=== PATIENT | female | born 1935 | race Caucasian/White ===

== ENCOUNTER 2018-04-03 18:20 | Inpatient (IN) ==
[2018-04-03] MEDS ORDERED: Ondansetron 4 MG/2 ML VIAL IVP ONE (18:28)
--- NOTE | 2018-04-03 18:39 | Emergency Department Note ---
Disposition Clinical Impression: Nausea vomiting and diarrhea Disposition: Still a Patient Condition: Good Time of Disposition: 18:46 General Adult HPI - General Chief complaint: ED Nausea/Vomiting/Diarrhea Stated complaint: nausea, vomiting Time Seen by Provider: 04/03/18 18:27 Source: patient Mode of arrival: EMS Limitations: no limitations Nursing Notes Reviewed: Yes Vital Signs Reviewed: Yes - History of Present Illness HPI Narrative: Patient presents from [facility] for acute onset of nausea vomiting or diarrhea. Patient ate food last night and since then his had persistent symptoms. Patient denies any falls trauma or injury. She has been out to our emergency room twice since the beginning of the month for other etiology. Patient is currently denying chest pain, shortness of breath, nausea, vomiting. Denies any fevers or chills. The diarrhea is her main concern. Onset (ago): day(s) Location: abdomen Radiation: non-radiation Pain Severity: moderate Pain Scale: 0 Quality: aching Consistency: intermittent Improves with: nothing Worsens with: nothing Associated symptoms: Reports: loss of appetite, nausea/vomiting Treatments Prior to Arrival: none - Related Data Home Medications Medication Instructions Recorded Confirmed Aspirin [Adult Low Dose Aspirin EC] 81 mg PO DAILY 05/19/15 03/21/18 Ropinirole HCl [Requip Xl] 2 mg PO HS 05/19/15 03/21/18 Vitamin D3/Folic Acid [Ortho D 1,000 cap PO DAILY 05/19/15 03/21/18 3,775 Unit-1 mg Cap] Lisinopril [Zestril] 10 mg PO QPM 02/27/16 03/21/18 Furosemide [Lasix] 40 mg PO DAILY 11/05/17 03/21/18 Levothyroxine [Levothyroxine 137 mcg PO DAILY 02/05/18 03/21/18 Sodium] Previous Rx's Medication Instructions Recorded Sennosides [Senna] 2 tab PO HS #60 tablet 01/06/16 Oxycodone HCl [Oxaydo] 5 mg PO Q2H PRN #90 tablet.orl 10/19/16 Alendronate Sodium [Fosamax] 70 mg PO QWEEK #12 tablet 04/09/17 Potassium Chloride 20 meq PO BID #60 tab.er.prt 10/21/17 Capecitabine [Xeloda] 3 tab PO BID #84 tablet 02/05/18 Ondansetron HCl [Zofran] 4 mg PO Q4H PRN #30 tablet 02/05/18 Prochlorperazine Maleate 10 mg PO Q6H PRN #30 tablet 02/05/18 [Compazine] Lidocaine/Prilocaine [Emla] 1 appl TP AD #30 gm 02/07/18 Loperamide HCl [Imodium A-D] 2 mg PO Q2HR PRN #30 capsule 02/14/18 Walker [WALKER] 1 each .ROUTE AD #1 each 02/17/18 Gabapentin [Neurontin] 300 mg PO BID 30 Days #60 capsule 02/21/18 Azithromycin [Azithromycin 6-Tab 250 mg PO PER PKG DI #6 tab 03/21/18 Pack] Metoprolol [Lopressor] 12.5 mg PO BID #30 tablet 04/02/18 Allergies Allergy/AdvReac Type Severity Reaction Status Date / Time adhesive Allergy Unknown Blister Verified 03/21/18 13:39 Penicillins [PCN] Allergy Unknown Hives Verified 03/21/18 13:39 Sulfa (Sulfonamide Allergy Unknown Hives Verified 03/21/18 13:39 Antibiotics) All systems ED: reviewed and negative except as stated. Review of Systems: As Per HPI Constitutional: Denies: fever, weakness Cardiovascular: Denies: chest pain, palpitations, dyspnea on exertion, orthopnea Respiratory: Denies: cough, dyspnea, wheezes, hemoptysis Gastrointestinal: Reports: abdominal pain, nausea, vomiting, diarrhea. Denies: constipation, hematemesis, hematochezia Genitourinary: Denies: urgency, dysuria, frequency Musculoskeletal: Denies: back pain, neck pain Integumentary: Denies: rash Neurological: Denies: headache Psychiatric: Denies: anxiety, depression Endocrine: Denies: fatigue Past Medical History - Past Medical History Attestation: Yes The following information was validated with the patient. Source: patient Medical history: Reports: arthritis, cancer, hypertension, malignancy, osteoporosis, thyroid disease, syncope, venous stasis, other Surgical history: Reports: angioplasty/stent, breast surgery, , c olectomy, pacemaker/AICD, other Psychiatric history: Reports: no psych history - Social History Smoking Status: Never smoker Smokeless Tobacco Status: No Alcohol use: Reports: none Drug use: Reports: none Physical Exam - General Limitations: no limitations General appearance: alert, in no apparent distress - Head Head exam: atraumatic, normocephalic, normal inspection - ENT ENT exam: normal exam, normal oropharynx, mucous membranes moist - Neck Neck exam: Present: normal inspection, full ROM, trachea midline. Absent: tenderness, lymphadenopathy - Chest Chest inspection: Present: normal inspection, symmetric chest wall rise. Absent: tenderness - Respiratory Respiratory exam: Present: normal lung sounds bilaterally. Absent: respiratory distress, wheezes, accessory muscle use - Cardiovascular Cardiovascular exam: Present: regular rate, normal rhythm, normal heart sounds - Abdominal Exam Abdominal exam: Present: soft, Non-Tender, normal bowel sounds. Absent: tenderness, distention, guarding, rebound, rigidity, Patrick's sign, Rovsing's sign, tenderness at McBurney's Point - Extremities Exam Extremities exam: Present: normal inspection, full ROM, normal capillary refill. Absent: tenderness - Back Exam Back exam: Present: normal inspection, full ROM. Absent: tenderness, CVA tenderness (R), CVA tenderness (L) - Neurological Exam Neurological exam: Present: alert, oriented X3, CN II-XII intact, normal gait - Skin Skin exam: Present: warm, dry, intact, normal color Course Course Narrative: Patient seen and examined at the time of arrival. See history of present illness. 82-year-old female presents from long-term facility for evaluation of persistent nausea vomiting and diarrhea. Symptom onset was last night. She has been evaluated twice over the last 2 weeks for other issues. She has never had nausea vomiting or diarrhea. Patient did eat food provided from a local druze last night and then since then his had pain. Patient denies any chest pain, shortness of breath, nausea, fevers, chills. Her main complaint is abdominal discomfort lower abdominal cramping and diarrhea. Vital signs otherwise stable on presentation. Patient is alert she is oriented she speaks in full sentences. Her lungs are clear her heart is regular. Abdomen is soft mild discomfort in the lower abdomen but no point tenderness guarding rigidity or peritoneal symptoms noted at this time. Patient does not have any appreciable pitting edema. No acute neurologic deficits. Patient will have labs including a CBC, chemistry, troponin, BNP ordered at this time along with urinalysis. EKG chest x-ray and CT the abdomen will be completed as well. Patient does not have any acute findings are concerning for influenza but the patient is complaining of symptoms that would be consistent with food poisoning. Disposition pending the full workup and treatment course. Patient will be signed out to the nighttime physician Dr. Blum. Vital Signs Temperature 98.5 F 04/03/18 18:21 Pulse Rate 89 04/03/18 18:21 Respiratory Rate 18 04/03/18 18:21 Blood Pressure 101/70 04/03/18 18:21 O2 Sat by Pulse Oximetry 99 04/03/18 18:21 Temperature 98.5 F 04/03/18 18:21 Pulse Rate 89 04/03/18 18:21 Respiratory Rate 18 04/03/18 18:21 Blood Pressure 101/70 04/03/18 18:21 O2 Sat by Pulse Oximetry 99 04/03/18 18:21 Oxygen Delivery Oxygen Delivery Room Air Medical Decision Making - MDM Narrative Medical decision making narrative: Abdominal cramping, nausea vomiting and diarrhea
[2018-04-03] MEDS ORDERED: 0.9 % Sodium Chloride 1,000 ML IVC SCH (19:00)
[2018-04-03] MEDS ORDERED: Isovue-370 500 ML INFUS..BTL IV ONE (19:19)
--- NOTE | 2018-04-03 19:24 | Emergency Department Note ---
Disposition Clinical Impression: Nausea vomiting and diarrhea, Dehydration Disposition: Admitted As Inpatient Condition: Good Referrals: Moose Villalta MD [Primary Care Provider] - Forms: ED Satisfaction Letter Time of Disposition: 22:51 General Adult HPI - General Chief complaint: ED Nausea/Vomiting/Diarrhea Stated complaint: nausea, vomiting Time Seen by Provider: 04/03/18 18:27 Source: patient Mode of arrival: EMS Limitations: no limitations Nursing Notes Reviewed: Yes Vital Signs Reviewed: Yes - History of Present Illness HPI Narrative: Please see Dr Hartman note for initial HPI. Pt did now endorse SOB which she did not complain to him. She states that currently at rest she is not SOB, however she reports when she gets up and walk she get SOB. She denies chest pain associated with this. Location: abdomen Pain Scale: 0 Quality: aching Improves with: nothing Worsens with: nothing Associated symptoms: Reports: loss of appetite, nausea/vomiting Treatments Prior to Arrival: none - Related Data Home Medications Medication Instructions Recorded Confirmed Aspirin [Adult Low Dose Aspirin EC] 81 mg PO DAILY 05/19/15 03/21/18 Ropinirole HCl [Requip Xl] 2 mg PO HS 05/19/15 03/21/18 Vitamin D3/Folic Acid [Ortho D 1,000 cap PO DAILY 05/19/15 03/21/18 3,775 Unit-1 mg Cap] Lisinopril [Zestril] 10 mg PO QPM 02/27/16 03/21/18 Furosemide [Lasix] 40 mg PO DAILY 11/05/17 03/21/18 Levothyroxine [Levothyroxine 137 mcg PO DAILY 02/05/18 03/21/18 Sodium] Previous Rx's Medication Instructions Recorded Sennosides [Senna] 2 tab PO HS #60 tablet 01/06/16 Oxycodone HCl [Oxaydo] 5 mg PO Q2H PRN #90 tablet.orl 10/19/16 Alendronate Sodium [Fosamax] 70 mg PO QWEEK #12 tablet 04/09/17 Potassium Chloride 20 meq PO BID #60 tab.er.prt 10/21/17 Capecitabine [Xeloda] 3 tab PO BID #84 tablet 02/05/18 Ondansetron HCl [Zofran] 4 mg PO Q4H PRN #30 tablet 02/05/18 Prochlorperazine Maleate 10 mg PO Q6H PRN #30 tablet 02/05/18 [Compazine] Lidocaine/Prilocaine [Emla] 1 appl TP AD #30 gm 02/07/18 Loperamide HCl [Imodium A-D] 2 mg PO Q2HR PRN #30 capsule 02/14/18 Walker [WALKER] 1 each .ROUTE AD #1 each 02/17/18 Gabapentin [Neurontin] 300 mg PO BID 30 Days #60 capsule 02/21/18 Azithromycin [Azithromycin 6-Tab 250 mg PO PER PKG DI #6 tab 03/21/18 Pack] Metoprolol [Lopressor] 12.5 mg PO BID #30 tablet 04/02/18 Allergies Allergy/AdvReac Type Severity Reaction Status Date / Time adhesive Allergy Unknown Blister Verified 03/21/18 13:39 Penicillins [PCN] Allergy Unknown Hives Verified 03/21/18 13:39 Sulfa (Sulfonamide Allergy Unknown Hives Verified 03/21/18 13:39 Antibiotics) All systems ED: reviewed and negative except as stated. Review of Systems: As Per HPI Constitutional: Denies: fever, weakness Cardiovascular: Denies: chest pain, palpitations, dyspnea on exertion, orthopnea Respiratory: Denies: cough, dyspnea, wheezes, hemoptysis Gastrointestinal: Reports: abdominal pain, nausea, vomiting, diarrhea (multiple episodes today). Denies: constipation, hematemesis, hematochezia Genitourinary: Denies: urgency, dysuria, frequency Musculoskeletal: Denies: back pain, neck pain Integumentary: Denies: rash Neurological: Denies: headache Psychiatric: Denies: anxiety, depression Endocrine: Reports: fatigue Past Medical History - Past Medical History Attestation: Yes The following information was validated with the patient. Source: patient Medical history: Reports: arthritis, cancer, hypertension, malignancy, osteoporosis, thyroid disease, syncope, venous stasis, other Surgical history: Reports: angioplasty/stent, breast surgery, , c olectomy, pacemaker/AICD, other Psychiatric history: Reports: no psych history - Social History Smoking Status: Never smoker Smokeless Tobacco Status: No Alcohol use: Reports: none Drug use: Reports: none Physical Exam - General Limitations: no limitations General appearance: alert, in no apparent distress - Head Head exam: atraumatic, normocephalic, normal inspection - Eye Eye exam: Present: normal appearance, PERRL, EOMI - ENT ENT exam: normal exam, normal oropharynx, mucous membranes dry - Neck Neck exam: Present: normal inspection, full ROM, trachea midline - Chest Chest inspection: Present: normal inspection, symmetric chest wall rise - Respiratory Respiratory exam: Present: normal lung sounds bilaterally (diminished in lower lobes). Absent: respiratory distress, accessory muscle use - Cardiovascular Cardiovascular exam: Present: regular rate, normal rhythm, normal heart sounds - Abdominal Exam Abdominal exam: Present: soft, tenderness (to RUQ and RLQ). Absent: distention, guarding, rebound, rigidity, organomegaly, mass - Extremities Exam Extremities exam: Present: normal inspection, full ROM, normal capillary refill. Absent: tenderness, pedal edema, calf tenderness - Neurological Exam Neurological exam: Present: alert, oriented X3 - Psychiatric Psychiatric exam: Present: normal affect, normal mood - Skin Skin exam: Present: warm, dry, intact, normal color. Absent: cyanosis, diaphoresis Course Course Narrative: On exam at my arrival Pt now has tenderness to palpation of the right upper and right lower quadrants. There are no palpable masses or distention. She has no peritoneal signs She does report a decrease in her abdoinal pain occasionally after a bowel movement which she states is watery. Non bloody no melena. She denies any urinary symptoms. We will continue with the plan that DR Mccoy has, with the addition of IV contrast to the CT if the Pt GFR is stable, and we added a lipase level. The Pt is agreeable with this. - Reevaluation(s) Reevaluation #1: Patient reassessed. Patient CT of her abdomen did show ascites throughout. She appears clinically dehydrated and has worsening of her kidney function. Patient does have a history of CHF. We have provided her with fluids will she is here. She is not able to take by mouth intake she still states she feels nauseated. She has had multiple episodes of diarrhea earlier today with a recent antibiotic use of azithromycin. We are still awaiting liver enzymes. We will admit patient to hospital. Time: 22:40 Reevaluation #2: Patient's liver enzymes are normal. We will proceed with admission to the hospital. Time: 22:49 - Consultations Consultation #1: Pt accepted Pt in stable condition. Time: 23:00 Vital Signs Temperature 98.5 F 04/03/18 18:21 Pulse Rate 89 04/03/18 18:21 Respiratory Rate 18 04/03/18 18:21 Blood Pressure 101/70 04/03/18 18:21 O2 Sat by Pulse Oximetry 99 04/03/18 18:21 Temperature 98.5 F 04/03/18 18:21 Pulse Rate 82 04/03/18 19:51 Respiratory Rate 20 04/03/18 19:51 Blood Pressure 108/66 04/03/18 19:51 O2 Sat by Pulse Oximetry 97 04/03/18 19:51 Oxygen Delivery Oxygen Delivery Room Air Medical Decision Making - Medical Records Medical records reviewed: Yes I reviewed the patient's medical records. - Lab Data Lab results reviewed: Yes I reviewed the patient's lab results. Result diagrams: 04/03/18 21:18 04/03/18 20:17 Lab Results 04/03/18 04/03/18 04/03/18 Range/Units 20:17 20:17 20:17 WBC (4.3-11.1) K/mcL RBC (3.82-4.97) M/mcL Hgb (11.5-15.4) g/dL Hct (35.3-44.9) % MCV (83.0-100.0) fL MCH (28.0-33.3) pg MCHC (31.6-35.5) g/dL RDW (11.5-14.5) % Plt Count (140-400) K/mcL MPV (9.4-12.4) fL Immature Gran % (0-4) % Seg Neutrophils % % Lymphocytes % % Monocytes % % Eosinophils % % Basophils % % Neutrophils # (1.6-8.9) K/mcL Lymphocytes # (0.6-4.6) K/mcL Monocytes # (0.0-1.3) K/mcL Eosinophils # (0.0-0.6) K/mcL Basophils # (0.0-0.2) K/mcL Sodium 135 L (136-145) mEq/L Potassium 4.8 (3.5-5.1) mEq/L Chloride 108 H (98-107) mEq/L Carbon Dioxide 19 L (23-29) mEq/L BUN 26 H (8-23) mg/dL Creatinine 1.34 H (0.60-1.20) mg/dL Est GFR ( Amer) 46 L (> 60) Est GFR (Non-Af Amer) 38 L (> 60) BUN/Creatinine Ratio 19 (6-26) Glucose 126 H (70-105) mg/dL Calculated Osmolality 286 (280-300) Lactic Acid (0.5-2.2) mmol/L Calcium 8.5 L (8.6-10.3) mg/dL Total Bilirubin 1.0 (0.3-1.0) mg/dL Direct Bilirubin 0.1 (0.0-0.2) mg/dL Indirect Bilirubin 0.9 (0.0-1.2) mg/dL AST 22 (13-39) Units/L ALT 8 (7-52) Units/L Alkaline Phosphatase 60 (34-104) Units/L Troponin I < 0.03 (< 0.04) ng/mL B-Natriuretic Peptide 50 (Less than 100) pg/mL Serum Total Protein 5.6 L (6.4-8.9) g/dL Albumin 3.1 L (3.5-5.7) g/dL Globulin 2.5 (2.4-3.5) g/dL Albumin/Globulin Ratio 1.2 (1.1-2.2) Lipase 13 (11-82) Units/L Specimen Rejected Clotted 04/03/18 04/03/18 Range/Units 21:18 22:19 WBC 8.6 (4.3-11.1) K/mcL RBC 3.62 L (3.82-4.97) M/mcL Hgb 12.2 (11.5-15.4) g/dL Hct 37.0 (35.3-44.9) % MCV 102.2 H (83.0-100.0) fL MCH 33.7 H (28.0-33.3) pg MCHC 33.0 (31.6-35.5) g/dL RDW 19.4 H (11.5-14.5) % Plt Count 154 (140-400) K/mcL MPV 10.0 (9.4-12.4) fL Immature Gran % 0.5 (0-4) % Seg Neutrophils % 74.5 % Lymphocytes % 16.9 % Monocytes % 7.2 % Eosinophils % 0.7 % Basophils % 0.2 % Neutrophils # 6.4 (1.6-8.9) K/mcL Lymphocytes # 1.5 (0.6-4.6) K/mcL Monocytes # 0.6 (0.0-1.3) K/mcL Eosinophils # 0.1 (0.0-0.6) K/mcL Basophils # 0.0 (0.0-0.2) K/mcL Sodium (136-145) mEq/L Potassium (3.5-5.1) mEq/L Chloride (98-107) mEq/L Carbon Dioxide (23-29) mEq/L BUN (8-23) mg/dL Creatinine (0.60-1.20) mg/dL Est GFR ( Amer) (> 60) Est GFR (Non-Af Amer) (> 60) BUN/Creatinine Ratio (6-26) Glucose (70-105) mg/dL Calculated Osmolality (280-300) Lactic Acid 1.0 (0.5-2.2) mmol/L Calcium (8.6-10.3) mg/dL Total Bilirubin (0.3-1.0) mg/dL Direct Bilirubin (0.0-0.2) mg/dL Indirect Bilirubin (0.0-1.2) mg/dL AST (13-39) Units/L ALT (7-52) Units/L Alkaline Phosphatase (34-104) Units/L Troponin I (< 0.04) ng/mL B-Natriuretic Peptide (Less than 100) pg/mL Serum Total Protein (6.4-8.9) g/dL Albumin (3.5-5.7) g/dL Globulin (2.4-3.5) g/dL Albumin/Globulin Ratio (1.1-2.2) Lipase (11-82) Units/L Specimen Rejected - Radiology Data Radiology results reviewed: Yes I reviewed the patient's radiology results. Chest X-Ray 04/03/18 18:34 IMPRESSION: No acute findings. D/ / Sadiq Rothman MD / Sadiq Rothman MD Interpreting Provider: Sadiq Rothman MD Chest X-Ray 04/03/18 18:34 IMPRESSION: No acute findings. D/ / Sadiq Rothman MD / Sadiq Rothman MD Interpreting Provider: Sadiq Rothman MD Abdomen/Pelvis CT 04/03/18 21:11 IMPRESSION: 1. Small to moderate ascites. 2. Stable upper abdominal nodules along the liver resection margin and anterior to the pancreas. D/ / Martin Alonzo MD / Martin Alonzo MD Interpreting Provider: Martin Alonzo MD - EKG Data EKG #1 EKG attestation: Yes I reviewed and interpreted this EKG. EKG results narrative: Normal sinus rhythm at a rate 86. [place] interval is 202. QRS duration is 92. QT is 387. QTC is 463. No signs of acute ischemia. No signs of WPW or Brugada syndrome. Poor R-wave progression.
[2018-04-03] MEDS ORDERED: *HR* FentaNYL (PF) 100 MCG/2 ML VIAL IVP STA (19:42)
[2018-04-03] MEDS ORDERED: 0.9 % Sodium Chloride 250 ML IVC ONE (20:41)
[2018-04-03 20:54] LABS: BUN/Creatinine Ratio 19 (6-26); Blood Urea Nitrogen 26 mg/dL (8-23); Calcium 8.5 mg/dL (8.6-10.3); Carbon Dioxide 19 mEq/L (23-29); Chloride 108 mEq/L (98-107); Glucose 126 mg/dL (70-105); Lipase 13 Units/L (11-82); Osmolality,Calculated 286 (280-300); Potassium 4.8 mEq/L (3.5-5.1); Sodium 135 mEq/L (136-145); Troponin I < 0.03 ng/mL (< 0.04); eGFR For Non-African Americans 38 (> 60)
--- NOTE | 2018-04-03 21:18 | Emergency Department Note ---
Disposition Clinical Impression: Nausea vomiting and diarrhea, Dehydration Disposition: Still a Patient Condition: Good General Adult HPI - General Chief complaint: ED Nausea/Vomiting/Diarrhea Stated complaint: nausea, vomiting Time Seen by Provider: 04/03/18 18:27 Source: patient Mode of arrival: EMS Limitations: no limitations - History of Present Illness Location: abdomen Pain Scale: 0 Quality: aching Improves with: nothing Worsens with: nothing Associated symptoms: Reports: loss of appetite, nausea/vomiting Treatments Prior to Arrival: none - Related Data Home Medications Medication Instructions Recorded Confirmed Aspirin [Adult Low Dose Aspirin EC] 81 mg PO DAILY 05/19/15 03/21/18 Ropinirole HCl [Requip Xl] 2 mg PO HS 05/19/15 03/21/18 Vitamin D3/Folic Acid [Ortho D 1,000 cap PO DAILY 05/19/15 03/21/18 3,775 Unit-1 mg Cap] Lisinopril [Zestril] 10 mg PO QPM 02/27/16 03/21/18 Furosemide [Lasix] 40 mg PO DAILY 11/05/17 03/21/18 Levothyroxine [Levothyroxine 137 mcg PO DAILY 02/05/18 03/21/18 Sodium] Previous Rx's Medication Instructions Recorded Sennosides [Senna] 2 tab PO HS #60 tablet 01/06/16 Oxycodone HCl [Oxaydo] 5 mg PO Q2H PRN #90 tablet.orl 10/19/16 Alendronate Sodium [Fosamax] 70 mg PO QWEEK #12 tablet 04/09/17 Potassium Chloride 20 meq PO BID #60 tab.er.prt 10/21/17 Capecitabine [Xeloda] 3 tab PO BID #84 tablet 02/05/18 Ondansetron HCl [Zofran] 4 mg PO Q4H PRN #30 tablet 02/05/18 Prochlorperazine Maleate 10 mg PO Q6H PRN #30 tablet 02/05/18 [Compazine] Lidocaine/Prilocaine [Emla] 1 appl TP AD #30 gm 02/07/18 Loperamide HCl [Imodium A-D] 2 mg PO Q2HR PRN #30 capsule 02/14/18 Walker [WALKER] 1 each .ROUTE AD #1 each 02/17/18 Gabapentin [Neurontin] 300 mg PO BID 30 Days #60 capsule 02/21/18 Azithromycin [Azithromycin 6-Tab 250 mg PO PER PKG DI #6 tab 03/21/18 Pack] Metoprolol [Lopressor] 12.5 mg PO BID #30 tablet 04/02/18 Allergies Allergy/AdvReac Type Severity Reaction Status Date / Time adhesive Allergy Unknown Blister Verified 03/21/18 13:39 Penicillins [PCN] Allergy Unknown Hives Verified 03/21/18 13:39 Sulfa (Sulfonamide Allergy Unknown Hives Verified 03/21/18 13:39 Antibiotics) Constitutional: Denies: fever, weakness Cardiovascular: Denies: chest pain, palpitations, dyspnea on exertion, orthopnea Respiratory: Denies: cough, dyspnea, wheezes, hemoptysis Gastrointestinal: Reports: abdominal pain, nausea, vomiting, diarrhea. Denies: constipation, hematemesis, hematochezia Genitourinary: Denies: urgency, dysuria, frequency Musculoskeletal: Denies: back pain, neck pain Integumentary: Denies: rash Neurological: Denies: headache Psychiatric: Denies: anxiety, depression Endocrine: Reports: fatigue Past Medical History - Past Medical History Medical history: Reports: arthritis, cancer, hypertension, malignancy, osteoporosis, thyroid disease, syncope, venous stasis, other Surgical history: Reports: angioplasty/stent, breast surgery, , colec elinor, pacemaker/AICD, other Psychiatric history: Reports: no psych history - Social History Smoking Status: Never smoker Smokeless Tobacco Status: No Alcohol use: Reports: none Drug use: Reports: none Physical Exam - General Limitations: no limitations General appearance: alert, in no apparent distress Course Vital Signs Temperature 98.5 F 04/03/18 18:21 Pulse Rate 89 04/03/18 18:21 Respiratory Rate 18 04/03/18 18:21 Blood Pressure 101/70 04/03/18 18:21 O2 Sat by Pulse Oximetry 99 04/03/18 18:21 Temperature 98.5 F 04/03/18 18:21 Pulse Rate 78 04/03/18 23:20 Respiratory Rate 17 04/03/18 23:20 Blood Pressure 103/64 04/03/18 23:20 O2 Sat by Pulse Oximetry 97 04/03/18 23:20 Oxygen Delivery Oxygen Delivery Room Air Medical Decision Making - Lab Data Result diagrams: 04/03/18 21:18 04/03/18 20:17 Lab Results 04/03/18 04/03/18 04/03/18 Range/Units 20:17 20:17 20:17 WBC (4.3-11.1) K/mcL RBC (3.82-4.97) M/mcL Hgb (11.5-15.4) g/dL Hct (35.3-44.9) % MCV (83.0-100.0) fL MCH (28.0-33.3) pg MCHC (31.6-35.5) g/dL RDW (11.5-14.5) % Plt Count (140-400) K/mcL MPV (9.4-12.4) fL Immature Gran % (0-4) % Seg Neutrophils % % Lymphocytes % % Monocytes % % Eosinophils % % Basophils % % Neutrophils # (1.6-8.9) K/mcL Lymphocytes # (0.6-4.6) K/mcL Monocytes # (0.0-1.3) K/mcL Eosinophils # (0.0-0.6) K/mcL Basophils # (0.0-0.2) K/mcL Sodium 135 L (136-145) mEq/L Potassium 4.8 (3.5-5.1) mEq/L Chloride 108 H (98-107) mEq/L Carbon Dioxide 19 L (23-29) mEq/L BUN 26 H (8-23) mg/dL Creatinine 1.34 H (0.60-1.20) mg/dL Est GFR ( Amer) 46 L (> 60) Est GFR (Non-Af Amer) 38 L (> 60) BUN/Creatinine Ratio 19 (6-26) Glucose 126 H (70-105) mg/dL Calculated Osmolality 286 (280-300) Lactic Acid (0.5-2.2) mmol/L Calcium 8.5 L (8.6-10.3) mg/dL Total Bilirubin 1.0 (0.3-1.0) mg/dL Direct Bilirubin 0.1 (0.0-0.2) mg/dL Indirect Bilirubin 0.9 (0.0-1.2) mg/dL AST 22 (13-39) Units/L ALT 8 (7-52) Units/L Alkaline Phosphatase 60 (34-104) Units/L Troponin I < 0.03 (< 0.04) ng/mL B-Natriuretic Peptide 50 (Less than 100) pg/mL Serum Total Protein 5.6 L (6.4-8.9) g/dL Albumin 3.1 L (3.5-5.7) g/dL Globulin 2.5 (2.4-3.5) g/dL Albumin/Globulin Ratio 1.2 (1.1-2.2) Lipase 13 (11-82) Units/L Specimen Rejected Clotted 04/03/18 04/03/18 Range/Units 21:18 22:19 WBC 8.6 (4.3-11.1) K/mcL RBC 3.62 L (3.82-4.97) M/mcL Hgb 12.2 (11.5-15.4) g/dL Hct 37.0 (35.3-44.9) % MCV 102.2 H (83.0-100.0) fL MCH 33.7 H (28.0-33.3) pg MCHC 33.0 (31.6-35.5) g/dL RDW 19.4 H (11.5-14.5) % Plt Count 154 (140-400) K/mcL MPV 10.0 (9.4-12.4) fL Immature Gran % 0.5 (0-4) % Seg Neutrophils % 74.5 % Lymphocytes % 16.9 % Monocytes % 7.2 % Eosinophils % 0.7 % Basophils % 0.2 % Neutrophils # 6.4 (1.6-8.9) K/mcL Lymphocytes # 1.5 (0.6-4.6) K/mcL Monocytes # 0.6 (0.0-1.3) K/mcL Eosinophils # 0.1 (0.0-0.6) K/mcL Basophils # 0.0 (0.0-0.2) K/mcL Sodium (136-145) mEq/L Potassium (3.5-5.1) mEq/L Chloride (98-107) mEq/L Carbon Dioxide (23-29) mEq/L BUN (8-23) mg/dL Creatinine (0.60-1.20) mg/dL Est GFR ( Amer) (> 60) Est GFR (Non-Af Amer) (> 60) BUN/Creatinine Ratio (6-26) Glucose (70-105) mg/dL Calculated Osmolality (280-300) Lactic Acid 1.0 (0.5-2.2) mmol/L Calcium (8.6-10.3) mg/dL Total Bilirubin (0.3-1.0) mg/dL Direct Bilirubin (0.0-0.2) mg/dL Indirect Bilirubin (0.0-1.2) mg/dL AST (13-39) Units/L ALT (7-52) Units/L Alkaline Phosphatase (34-104) Units/L Troponin I (< 0.04) ng/mL B-Natriuretic Peptide (Less than 100) pg/mL Serum Total Protein (6.4-8.9) g/dL Albumin (3.5-5.7) g/dL Globulin (2.4-3.5) g/dL Albumin/Globulin Ratio (1.1-2.2) Lipase (11-82) Units/L Specimen Rejected Attestation Statement - Attestation Attestation: Resident Attestation: I examined this patient and my medical decision making was reviewed with the Resident Physician. I agree with the documented findings, disposition and treatment plan as described except to the extent set forth below. We independently had [id number] contact with the patient. Patient was initially seen by Dr. Mccoy, taken over at sign out, also seen alongside resident physician Dr. Chappell. Patient has significant history including cancer on chemotherapy and did not get her last chemotherapy secondary to overall symptoms. Patient had been diagnosed with viral syndrome and placed on azithromycin. The patient is here today for concerns for diarrhea as well as abdominal pain. Patient states she has had 4-5 episodes of loose mucousy and foul-smelling stool today. The patient has right lower quadrant tenderness. No guarding or rebound. The patient does have dry mucous membranes. She will undergo further evaluation and treatment with blood work as well as CT abdomen and pelvis. A stool panel will try to be obtained in the emergency department. Blood work shows acute kidney injury and signs of dehydration. Stool panel is pending. Patient on contact precautions. Patient had bowel movement prior to me seeing her. Does not have the urge to defecate at this time. Nurse check rectal vault which was empty. Stool panel will need follow-up. This has been signed out to the hospitalist who accepts the patient for treatment.
[2018-04-03 21:28] LABS: Basophils % 0.2 %; Eosinophils # 0.1 K/mcL (0.0-0.6); Eosinophils % 0.7 %; Hemoglobin 12.2 g/dL (11.5-15.4); Immature Granulocytes % 0.5 % (0-4); Lymphocytes # 1.5 K/mcL (0.6-4.6); Lymphocytes % 16.9 %; Mean Corpuscular Hemoglobin 33.7 pg (28.0-33.3); Mean Corpuscular Volume 102.2 fL (83.0-100.0); Monocytes # 0.6 K/mcL (0.0-1.3); Monocytes % 7.2 %; Neutrophils # 6.4 K/mcL (1.6-8.9); Platelet Count 154 K/mcL (140-400); Red Blood Count 3.62 M/mcL (3.82-4.97); Red Cell Distribution Width 19.4 % (11.5-14.5); Segmented Neutrophils % 74.5 %
[2018-04-03 22:42] LABS: Alanine Aminotransferase 8 Units/L (7-52); Albumin 3.1 g/dL (3.5-5.7); Albumin/Globulin Ratio 1.2 (1.1-2.2); Alkaline Phosphatase 60 Units/L (34-104); Aspartate Amino Transferase 22 Units/L (13-39); Bilirubin,Direct 0.1 mg/dL (0.0-0.2); Bilirubin,Indirect 0.9 mg/dL (0.0-1.2); Globulin 2.5 g/dL (2.4-3.5); Total Protein 5.6 g/dL (6.4-8.9)
[2018-04-03] MEDS ORDERED: Vancomycin Oral Soln 125 MG/2.5 ML UDC PO ONE (22:59)
--- NOTE | 2018-04-03 23:45 | Internal Med History&Physical ---
Date of Encounter: 04/04/18 Time of Encounter: 23:37 Internal Medicine - H&P: HPI Chief complaint: Nausea vomiting and diarrhea Admitted From: Emergency Dept Plans for Post Hospital Care: Home History of present illness: Ms. aGrner is a 82 year old female with h/o breast cancer s/p b/l mastectomies, metastatic colon cancer with liver resection and currently on chemo, htn, pacemaker, restless leg syndrome, who presented from home with nausea/vomiting/diarrhea since yesterday night. Symptoms persisted today. She had turkey yesterday evening with other people and none of them is sick. Last chemo was mar 07 and she didnt have chemo as scheduled march 28 due to having URI symptoms for which she was on abx during that week and finished azithromax about a week ago. Stools are watery. Had about 4 of them today. Had a few episodes of vomiting but no hematemesis. She is not tolerating PO. In the ED, labs showed DARREN but otherwise mostly unremarkable. No fever episodes. Denies chills. Denies headache, blurry vision, chest pain, shortness of breath, rashes, urinary symptoms, lower extremity edema, or neurological symptoms. Does complain of mild epigastric abdominal pain and she had a CT abdomen and pelvis done in the ED which showed small to moderate ascites. There was also stable upper abdominal nodules along the liver resection margin anterior to the pancreas. Lipase was normal. Past Med Surg Social Fam HX - Past Medical History Medical history: arthritis, cancer, hypertension, malignancy, osteoporosis, thyroid disease, syncope, venous stasis, other Additional medical history: breast cancer Psychiatric history: no psych history - Past Surgical History Surgical History: angioplasty/stent, breast surgery, , colectomy, pacemaker/AICD, other Additional surgical history: bilateral masectomy - Social History Smoking Status: Never smoker Smokeless Tobacco Status: No Alcohol use: none Drug use: none - Family History Father Living Status: Hx Family Cardiac Disorders: Yes Hx Family Respiratory Disorders: No Hx Family Cancer: No Hx Family GI Disorders: No Hx Family Endocrine Disorder: No Hx Family Neuromuscular Disorders: No Hx Family Neurologic Disorders: No Hx Family HEENT Disorders: No Hx Family Autoimmune Disorders: No Mother Adopted: No Living Status: Hx Family Cardiac Disorders: Yes (PACEMAKER) Hx Family Respiratory Disorders: No Hx Family Cancer: No Hx Family GI Disorders: No Hx Family Endocrine Disorder: No Hx Family Neuromuscular Disorders: No Hx Family Neurologic Disorders: No Hx Family HEENT Disorders: No Hx Family Autoimmune Disorders: No Internal Medicine - H&P: Meds Aspirin [Adult Low Dose Aspirin EC] 81 mg PO DAILY 05/19/15 [History] Ropinirole HCl [Requip Xl] 2 mg PO HS 05/19/15 [History] Vitamin D3/Folic Acid [Ortho D 3,775 Unit-1 mg Cap] 1,000 cap PO DAILY 05/19/15 [History] Sennosides [Senna] 2 tab PO HS #60 tablet 01/06/16 [Rx] Lisinopril [Zestril] 10 mg PO QPM 02/27/16 [History] Oxycodone HCl [Oxaydo] 5 mg PO Q2H PRN #90 tablet.orl 10/19/16 [Rx] Alendronate Sodium [Fosamax] 70 mg PO QWEEK #12 tablet 04/09/17 [Rx] Potassium Chloride 20 meq PO BID #60 tab.er.prt 10/21/17 [Rx] Furosemide [Lasix] 40 mg PO DAILY 11/05/17 [History] Capecitabine [Xeloda] 3 tab PO BID #84 tablet 02/05/18 [Rx] Levothyroxine [Levothyroxine Sodium] 137 mcg PO DAILY 02/05/18 [History] Ondansetron HCl [Zofran] 4 mg PO Q4H PRN #30 tablet 02/05/18 [Rx] Prochlorperazine Maleate [Compazine] 10 mg PO Q6H PRN #30 tablet 02/05/18 [Rx] Lidocaine/Prilocaine [Emla] 1 appl TP AD #30 gm 02/07/18 [Rx] Loperamide HCl [Imodium A-D] 2 mg PO Q2HR PRN #30 capsule 02/14/18 [Rx] Walker [WALKER] 1 each .ROUTE AD #1 each 02/17/18 [Rx] Gabapentin [Neurontin] 300 mg PO BID 30 Days #60 capsule 02/21/18 [Rx] Azithromycin [Azithromycin 6-Tab Pack] 250 mg PO PER PKG DI #6 tab 03/21/18 [Rx] Metoprolol [Lopressor] 12.5 mg PO BID #30 tablet 04/02/18 [Rx] Allergy/AdvReac Type Severity Reaction Status Date / Time adhesive Allergy Unknown Blister Verified 03/21/18 13:39 Penicillins [PCN] Allergy Unknown Hives Verified 03/21/18 13:39 Sulfa (Sulfonamide Allergy Unknown Hives Verified 03/21/18 13:39 Antibiotics) All Systems PM: A 10-system review of systems was performed and is negative for pertinent findings except as documented above in the HPI. Review of systems: All systems reviewed and negative except as mentioned above - Constitutional Vitals: Temp Pulse Resp BP Pulse Ox 98.5 F 78 17 103/64 97 04/03/18 18:21 04/03/18 23:20 04/03/18 23:20 04/03/18 23:20 04/03/18 23:20 Exam: GEN: NAD HEENT: AT, NC, No cyanosis, oral mucosa is moist, No JVD Lymphatics: No lymphadenoapthy Eyes: Extrocular muscles intact, anicteric CVS:RRR. S1, S2, No m/r/g RESP: CTAB ABD: Soft, generalized abdominal tenderness with no rebound. ND, +BS EXT: No edema, No rashes, 2+ DP NEURO: Nonfocal, CN II-XII intact, No focal motor or sensory deficits Psych: Cooperative, Not anxious or depressed Internal Med - H&P Results - Labs CBC & Chem 7: 04/03/18 21:18 04/03/18 20:17 Labs: Short CBC 04/03/18 Range/Units 21:18 WBC 8.6 (4.3-11.1) K/mcL Hgb 12.2 (11.5-15.4) g/dL Hct 37.0 (35.3-44.9) % Plt Count 154 (140-400) K/mcL Neutrophils # 6.4 (1.6-8.9) K/mcL BMP 04/03/18 20:17 Sodium 135 L Potassium 4.8 Chloride 108 H Carbon Dioxide 19 L BUN 26 H Creatinine 1.34 H Glucose 126 H Calcium 8.5 L Cardiac Enzymes 04/03/18 Range/Units 20:17 Troponin I < 0.03 (< 0.04) ng/mL Liver Function 04/03/18 Range/Units 20:17 Total Bilirubin 1.0 (0.3-1.0) mg/dL Direct Bilirubin 0.1 (0.0-0.2) mg/dL AST 22 (13-39) Units/L ALT 8 (7-52) Units/L Alkaline Phosphatase 60 (34-104) Units/L Albumin 3.1 L (3.5-5.7) g/dL - Impressions ITS Impressions Chest X-Ray 04/03/18 18:34 IMPRESSION: No acute findings. D/ / Sadiq Rothman MD / Sadiq Rothman MD Interpreting Provider: Sadiq Rothman MD Abdomen/Pelvis CT 04/03/18 21:11 IMPRESSION: 1. Small to moderate ascites. 2. Stable upper abdominal nodules along the liver resection margin and anterior to the pancreas. D/ / Martin Alonzo MD / Martin Alonzo MD Interpreting Provider: Martin Alonzo MD - Assessment and plan (1) DARREN (acute kidney injury) Current Visit: Yes Status: Acute Assessment and plan: Likely due to dehydration. Will continue IV fluids and avoid nephrotoxins. Labs in the morning. (2) Nausea vomiting and diarrhea Current Visit: Yes Status: Acute Assessment and plan: Possible viral gastroenteritis versus infectious. We will rule out C. difficile. We will check stools for cultures. Conservative management for now. (3) Colon cancer Current Visit: Yes Status: Acute Assessment and plan: Follow up in outpatient setting with oncology. Currently on chemotherapy. Qualifiers: Colon location: unspecified part of colon Qualified Code(s): C18.9 - Malignant neoplasm of colon, unspecified (4) History of breast cancer Current Visit: Yes Status: Acute Assessment and plan: Follow up with oncology. Continue Arimidex (5) Hypertension Current Visit: Yes Status: Acute Assessment and plan: Resume home meds Qualifiers: Hypertension type: essential hypertension Qualified Code(s): I10 - Essential (primary) hypertension (6) DVT prophylaxis Current Visit: No Status: Acute Assessment and plan: Heparin subcutaneous - Time Spent With Patient Total time spent is greater than 50% in coordination of care (as documented) at patient's floor/unit and/or counseling patient:
[2018-04-04] MEDS ORDERED: Ondansetron 4 MG/2 ML VIAL IVP PRN (00:29)
[2018-04-04] MEDS ORDERED: Acetaminophen 325 MG TABLET PO PRN (00:29)
[2018-04-04] MEDS ORDERED: Naloxone 0.4 MG/ML INJ IVP PRN (00:29)
[2018-04-04 03:23] LABS: Basophils % 0.3 %; Eosinophils # 0.1 K/mcL (0.0-0.6); Eosinophils % 1.3 %; Hematocrit 36.3 % (35.3-44.9); Immature Granulocytes % 0.4 % (0-4); Lymphocytes # 1.6 K/mcL (0.6-4.6); Lymphocytes % 22.9 %; Mean Corpuscular HGB Conc 33.1 g/dL (31.6-35.5); Mean Corpuscular Volume 102.8 fL (83.0-100.0); Mean Platelet Volume 10.3 fL (9.4-12.4); Monocytes # 0.5 K/mcL (0.0-1.3); Monocytes % 7.4 %; Neutrophils # 4.7 K/mcL (1.6-8.9); Platelet Count 144 K/mcL (140-400); Red Blood Count 3.53 M/mcL (3.82-4.97); Red Cell Distribution Width 19.7 % (11.5-14.5); Segmented Neutrophils % 67.7 %
[2018-04-04 03:36] LABS: Calcium 8.1 mg/dL (8.6-10.3); Potassium 3.9 mEq/L (3.5-5.1)
[2018-04-04] MEDS: 0.9 % Sodium Chloride 1,000 ML IVC SCH ×2 (05:45→17:08)
[2018-04-04] MEDS: Aspirin Enteric Coated 81 MG Tablet PO SCH (09:14)
[2018-04-04] MEDS: Gabapentin 300 MG CAPSULE PO SCH ×2 (09:14→21:37)
[2018-04-04] MEDS: ORTHO D PO SCH (09:17)
--- NOTE | 2018-04-04 14:07 | Internal Med Progress Note ---
Hospitalist Progress Note - Encounter Date of Encounter: 04/04/18 Time of Encounter: 11:30 - Subjective Interval History: Patient was seen and assessed at bedside 11:30 AM. She is alert,, oriented. She states that she is feeling better and has had no nausea, vomiting, diarrhea, or abdominal pain since she has been here. Patient appears to be agitated that we have not found out what is wrong with her. When I explained to her that it could be a viral illness, patient becomes upset and states that everyone keeps telling her not. Patient did not want to go home today despite her improving labs and feeling better and being asymptomatic from admission. She denies headache, chest pain, shortness breath, dizziness. - Exam Vitals: Temp Pulse Resp BP Pulse Ox 97.9 F 65 18 125/70 95 04/04/18 11:34 04/04/18 11:34 04/04/18 11:34 04/04/18 11:34 04/04/18 11:34 Exam: General: Pt resting quietly on bed, no distress. Skin: pwd, no rashes, lesions, redness Neurological: Pt is alert and awake, oriented x 3, Speech is clear, PERRLA, EOMI, no nystagmus, no pronator drift. strength equal x 4 extremities HEENT: mucous mumbranes moist, no conjuctival pallor Neck: supple, no tracheal deviation, no lymphadenopathy, tenderness, no thyromegaly Heart: S1S2 heard without gallops, clicks, murmurs, no bradycardia or tachycardia, pt has no peripheral edema, pedal and radial pulses palpable bilaterally. Lungs: clear throughout without wheezing, rales, or ronchi, respirations are unlabored Abdomen: soft and non tender , obese with bowel sound present, no hepatomegaly. Psych: Normal affect with good eye contact - Assessment and Plan (1) DVT prophylaxis Current Visit: Yes Status: Acute Assessment and Plan: Heparin subcutaneous (2) Nausea vomiting and diarrhea Current Visit: Yes Status: Acute Assessment and Plan: Possible viral gastroenteritis versus infectious. Patient has had no nausea, vomiting, diarrhea since arrival. She states that if she could go to the bathroom she would most likely have diarrhea. Abdomen pelvis CT showed stable upper abdominal nodules, [id number] ascites likely related to colon cancer. Monitor patient and labs. Conservative management for now. Stool studies pending and and uncollected. Abdomen/Pelvis CT 04/03/18 21:11 IMPRESSION: 1. Small to moderate ascites. 2. Stable upper abdominal nodules along the liver resection margin and anterior to the pancreas. D/ / Martin Alonzo MD / Martin Alonzo MD Interpreting Provider: Martin Alonzo MD (3) DARREN (acute kidney injury) Current Visit: Yes Status: Acute Assessment and Plan: Improving. He had not and 1.25, GFR 41. Likely due to dehydration. Continue IV fluids Avoid nephrotoxins Continue to monitor labs (4) Colon cancer Current Visit: Yes Status: Acute Assessment and Plan: Follow up in outpatient setting with oncology. Currently on chemotherapy. (5) History of breast cancer Current Visit: Yes Status: Acute Assessment and Plan: Follow up with oncology. Continue Arimidex (6) Hypertension Current Visit: Yes Status: Acute Assessment and Plan: Well-controlled. Continue current medications. DVT Prophylaxis: Heparin subcutaneous - Time Spent with Patient Total time spent is greater than 50% in coordination of care (as documented) at patient's floor/unit and/or counseling patient: less than 15 minutes Plan of Care Discussed with: nurse Internal Medicine: Result - Labs CBC & Chem 7: 04/04/18 03:00 04/04/18 03:00 Labs: Short CBC 04/03/18 04/04/18 Range/Units 21:18 03:00 WBC 8.6 7.0 (4.3-11.1) K/mcL Hgb 12.2 12.0 (11.5-15.4) g/dL Hct 37.0 36.3 (35.3-44.9) % Plt Count 154 144 (140-400) K/mcL Neutrophils # 6.4 4.7 (1.6-8.9) K/mcL BMP 04/03/18 04/04/18 20:17 03:00 Sodium 135 L 135 L Potassium 4.8 3.9 Chloride 108 H 108 H Carbon Dioxide 19 L 21 L BUN 26 H 27 H Creatinine 1.34 H 1.25 H Glucose 126 H 170 H Calcium 8.5 L 8.1 L Cardiac Enzymes 04/03/18 Range/Units 20:17 Troponin I < 0.03 (< 0.04) ng/mL Liver Function 04/03/18 Range/Units 20:17 Total Bilirubin 1.0 (0.3-1.0) mg/dL Direct Bilirubin 0.1 (0.0-0.2) mg/dL AST 22 (13-39) Units/L ALT 8 (7-52) Units/L Alkaline Phosphatase 60 (34-104) Units/L Albumin 3.1 L (3.5-5.7) g/dL - Impressions Impressions Chest X-Ray 04/03/18 18:34 IMPRESSION: No acute findings. D/ / Sadiq Rothman MD / Sadiq Rothman MD Interpreting Provider: Sadiq Rothman MD Abdomen/Pelvis CT 04/03/18 21:11 IMPRESSION: 1. Small to moderate ascites. 2. Stable upper abdominal nodules along the liver resection margin and anterior to the pancreas. D/ / Martin Alonzo MD / Martin Alonzo MD Interpreting Provider: Martin Alonzo MD Consult Discharge Plan - Plan Referrals: Moose Villalta MD [Primary Care Provider] - (Follow up appointment as been requested. ) (4) Colon cancer Qualifiers: Colon location: unspecified part of colon Qualified Code(s): C18.9 - Malignant neoplasm of colon, unspecified (6) Hypertension Qualifiers: Hypertension type: essential hypertension Qualified Code(s): I10 - Essential (primary) hypertension
[2018-04-04] MEDS: rOPINIRole 1 MG TABLET PO SCH (21:36)
[2018-04-04] MEDS: Sennosides 8.6 MG TABLET PO SCH (21:37)
[2018-04-05] MEDS: 0.9 % Sodium Chloride 1,000 ML IVC SCH ×3 (02:44→22:30)
[2018-04-05 05:04] LABS: Basophils % 0.4 %; Eosinophils # 0.1 K/mcL (0.0-0.6); Eosinophils % 2.6 %; Hematocrit 28.9 % (35.3-44.9); Immature Granulocytes % 0.2 % (0-4); Lymphocytes # 1.2 K/mcL (0.6-4.6); Lymphocytes % 25.5 %; Mean Corpuscular HGB Conc 33.2 g/dL (31.6-35.5); Mean Corpuscular Hemoglobin 34.3 pg (28.0-33.3); Mean Corpuscular Volume 103.2 fL (83.0-100.0); Mean Platelet Volume 10.1 fL (9.4-12.4); Monocytes # 0.4 K/mcL (0.0-1.3); Monocytes % 9.2 %; Neutrophils # 2.8 K/mcL (1.6-8.9); Platelet Count 107 K/mcL (140-400); Red Cell Distribution Width 19.6 % (11.5-14.5); Segmented Neutrophils % 62.1 %
[2018-04-05 05:07] LABS: Hemoglobin 9.6 g/dL (11.5-15.4)
[2018-04-05 05:13] LABS: BUN/Creatinine Ratio 20 (6-26); Blood Urea Nitrogen 16 mg/dL (8-23); Calcium 7.9 mg/dL (8.6-10.3); Carbon Dioxide 22 mEq/L (23-29); Chloride 111 mEq/L (98-107); Glucose 102 mg/dL (70-105); Osmolality,Calculated 285 (280-300); Sodium 137 mEq/L (136-145); eGFR For Non-African Americans > 60 (> 60)
[2018-04-05] MEDS: ORTHO D PO SCH (08:42)
[2018-04-05] MEDS: Aspirin Enteric Coated 81 MG Tablet PO SCH (08:49)
[2018-04-05] MEDS: Gabapentin 300 MG CAPSULE PO SCH ×2 (08:49→20:16)
--- NOTE | 2018-04-05 10:24 | Internal Med Progress Note ---
Hospitalist Progress Note - Encounter Date of Encounter: 04/05/18 Time of Encounter: 10:22 - Subjective Interval History: Seen and examined at bedside. Patient is new to me, information obtained from chart review and patient report. Laying in bed, appears comfortable. Says she feels better and back to baseline and would like to go home if possible. Denied abdominal pain. - Exam Vitals: Temp Pulse Resp BP Pulse Ox 97.5 F L 65 16 160/82 99 04/05/18 08:01 04/05/18 08:01 04/05/18 08:01 04/05/18 08:01 04/05/18 08:50 Exam: General appearance: Present: A&O X 3, pleasant, no acute distress - Head Head exam: Present: atraumatic, normocephalic - Eye Eye exam: Present: PERRL, conjuntiva pink, sclera anicteric Pupils: Present: PERRL - Neck Neck exam general surgery: Present: supple, trachea midline. Absent: lymphadenopathy - Respiratory Respiratory exam: Present: chest wall tenderness, CTAB. Absent: accessory muscle use, rales, rhonchi, wheezes - Cardiovascular Cardiovascular exam: Present: RRR, +S1, +S2. Absent: diastolic murmur, gallop, rubs, systolic murmur - GI/Abdominal GI/Abdominal exam: Present: normal bowel sounds, soft, no peritoneal signs. Absent: distended, tenderness - Extremities Exam Extremities exam: Present: warm, radial pulses palpable and symmetrical. Absent: calf tenderness, cyanotic, pedal edema - Neurological Exam Neurological exam: Present: CN II-XII intact, oriented X3, no focal deficits. Absent: pronater drift, facial droop, speech deficit - Skin Skin exam: Present: dry, intact - Assessment and Plan (1) DARREN (acute kidney injury) Current Visit: Yes Status: Acute Assessment and Plan: Cr 1.3 on arrival; most likely prerenal with excessive GI losses secondary to multiple loose stools. Renal function normalized with IV fluids. (2) Colon cancer Current Visit: Yes Status: Acute Assessment and Plan: per hx with mets. Last chemotherapy 03/07/2018; was scheduled to have chemotherapy on 03/24/18 however this was deferred due to URI symptoms. Follow- up with oncology outpatient. (3) History of breast cancer Current Visit: Yes Status: Acute Assessment and Plan: per hx. Follows with Oncology. Continue Arimidex (4) Hypertension Current Visit: Yes Status: Acute Assessment and Plan: per hx. BP controlled. Cont home BP medications (5) Gastroenteritis Current Visit: Yes Status: Acute Assessment and Plan: presented with ABD pain, nausea vomiting and loose stool. ABD CT showed stable upper abdominal nodules, [id number] ascites likely related to colon cancer. Suspect possible viral gastroenteritis as symptoms have resolved with conservative/supportive care. With recent ATB use stool studies pending. Advan ce diet as tolerated. (6) Anemia Current Visit: No Status: Acute Assessment and Plan: In the setting of chemotherapy. Hgb 12 on arrival and dropped to 9.6. Occult stool negative. No active bleeding. Monitor repeat H&H. DVT Prophylaxis: SCD - Time Spent with Patient Total time spent is greater than 50% in coordination of care (as documented) at patient's floor/unit and/or counseling patient: Internal Medicine: Result - Labs CBC & Chem 7: 04/05/18 04:40 04/05/18 04:40 Labs: Short CBC 04/05/18 Range/Units 04:40 WBC 4.6 (4.3-11.1) K/mcL Hgb 9.6 L D (11.5-15.4) g/dL Hct 28.9 L (35.3-44.9) % Plt Count 107 L (140-400) K/mcL Neutrophils # 2.8 (1.6-8.9) K/mcL BMP 04/05/18 04:40 Sodium 137 Potassium 4.0 Chloride 111 H Carbon Dioxide 22 L BUN 16 Creatinine 0.80 Glucose 102 Calcium 7.9 L Consult Discharge Plan - Plan Referrals: Moose Villalta MD [Primary Care Provider] - (Follow up appointment as been requested. ) (2) Colon cancer Qualifiers: Colon location: unspecified part of colon Qualified Code(s): C18.9 - Malignant neoplasm of colon, unspecified (4) Hypertension Qualifiers: Hypertension type: essential hypertension Qualified Code(s): I10 - Essential (primary) hypertension (6) Anemia Qualifiers: Anemia type: iron deficiency Iron deficiency anemia type: chronic blood loss Qualified Code(s): D50.0 - Iron deficiency anemia secondary to blood loss (chronic)
[2018-04-05 13:38] LABS: Adenovirus F 40/41 PCR Not detected (Not detect); Astrovirus PCR Not detected (Not detect); C.difficile Toxin A/B Gene PCR Not detected (Not detect); Campylobacter by PCR Not detected (Not detect); Cryptosporidium by PCR Not detected (Not detect); Cyclospora cayetanensis PCR Not detected (Not detect); E. coli O157 by PCR Not detected (Not detect); Entamoeba histolytica PCR Not detected (Not detect); Enteroaggregative E.coli(EAEC) Not detected (Not detect); Enteropathogenic E.coli(EPEC) Not detected (Not detect); Enterotoxigenic E.coli (ETEC) Not detected (Not detect); Giardia lamblia PCR Not detected (Not detect); Norovirus GI/GII PCR Not detected (Not detect); Plesiomonas shigelloides PCR Not detected (Not detect); Rotavirus A PCR Not detected (Not detect); Salmonella PCR Not detected (Not detect); Sapovirus PCR Not detected (Not detect); Shig/EnteroinvasiveE coli EIEC Not detected (Not detect); Shigalike tox-prod E coli STEC Not detected (Not detect); Vibrio PCR Not detected (Not detect); Vibrio cholerae PCR Not detected (Not detect); Yersinia enterocolitica PCR Not detected (Not detect)
[2018-04-05] MEDS: rOPINIRole 1 MG TABLET PO SCH (20:16)
[2018-04-05] MEDS: Sennosides 8.6 MG TABLET PO SCH ×2 (20:16→20:19)
[2018-04-06 06:38] LABS: Hematocrit 29.1 % (35.3-44.9); Hemoglobin 9.6 g/dL (11.5-15.4); Mean Corpuscular Hemoglobin 33.8 pg (28.0-33.3); Mean Corpuscular Volume 102.5 fL (83.0-100.0); Mean Platelet Volume 9.9 fL (9.4-12.4); Platelet Count 112 K/mcL (140-400); Red Blood Count 2.84 M/mcL (3.82-4.97); Red Cell Distribution Width 19.2 % (11.5-14.5)
[2018-04-06 06:54] LABS: BUN/Creatinine Ratio 11 (6-26); Blood Urea Nitrogen 8 mg/dL (8-23); Calcium 8.3 mg/dL (8.6-10.3); Carbon Dioxide 20 mEq/L (23-29); Chloride 111 mEq/L (98-107); Glucose 113 mg/dL (70-105); Osmolality,Calculated 285 (280-300); Potassium 3.7 mEq/L (3.5-5.1); Sodium 138 mEq/L (136-145); eGFR For Non-African Americans > 60 (> 60)
[2018-04-06 08:30] VITALS: BP 152/77
[2018-04-06] MEDS: Aspirin Enteric Coated 81 MG Tablet PO SCH (09:00)
[2018-04-06] MEDS: Gabapentin 300 MG CAPSULE PO SCH (09:00)
--- NOTE | 2018-04-06 09:00 | Electrocardiograph Report ---
[address] [address] Test Date: 2018-04-03 Pat Name: Tara Garner Department: EXAM3 Room: 3B41 Gender: F [employer] Performer: : [id number] Requested By: Gideon Mccoy Order Number: [id number] Reading MD: Veronica Castañeda Measurements Intervals [place] Rate: 86 P: 50 AL: 202 QRS: 180 QRSD: 92 T: 50 QT: 387 QTc: 463 Interpretive Statements Sinus rhythm Left posterior fascicular block Low voltage, precordial leads Abnormal R-wave progression, late transition Electronically Signed On 04-06-2018 8:58:42 EST by Veronica Castañeda
--- NOTE | 2018-04-06 09:06 | Discharge Summary ---
Orders not resulted at time of discharge: Pending orders 04/07/18 04:00 Complete Blood Count w/o Diff [HEME] AM 0400 04/08/18 04:00 Complete Blood Count w/o Diff [HEME] AM 0400 04/09/18 04:00 Complete Blood Count w/o Diff [HEME] AM 0400 04/10/18 04:00 Complete Blood Count w/o Diff [HEME] AM 0400 Date of Encounter: 04/06/18 Time of Encounter: 09:01 - Discharge Diagnosis (1) Gastroenteritis Priority: Primary Status: Resolved Assessment and Plan: presented with ABD pain, nausea vomiting and loose stool. ABD CT showed stable upper abdominal nodules, [id number] ascites likely related to colon cancer. Occult stools and stool studies negative. Suspect possible viral gastroenteritis as symptoms have resolved with conservative/supportive care. Tolerating regular diet and abdominal pain-free at time of discharge. (2) DARREN (acute kidney injury) Priority: Primary Status: Resolved Assessment and Plan: Cr 1.3 on arrival; most likely prerenal with excessive GI losses secondary to multiple loose stools. Renal function normalized with IV fluids. (3) Colon cancer Priority: Secondary Status: Chronic Assessment and Plan: per hx with mets. Last chemotherapy 03/07/2018; was scheduled to have chemotherapy on 03/24/18 however this was deferred due to URI symptoms. Follow- up with oncology outpatient. Qualifiers: Colon location: unspecified part of colon Qualified Code(s): C18.9 - Malignant neoplasm of colon, unspecified (4) History of breast cancer Priority: Secondary Status: Chronic Assessment and Plan: per hx. Follows with Oncology. Continue Arimidex (5) Hypertension Priority: Secondary Status: Acute Assessment and Plan: per hx. BP slightly elevated. Amlodipine added. Cont home BB. Recommend follow- up with PCP within one week for BP recheck Qualifiers: Hypertension type: essential hypertension Qualified Code(s): I10 - Essential (primary) hypertension (6) Anemia Priority: Secondary Status: Acute Assessment and Plan: In the setting of chemotherapy. Hgb 12 on arrival and dropped to 9.6. Occult stool negative. No active bleeding. Repeat Hgb stable at discharge. Recommend repeat CBC within 3-5 days. Qualifiers: Anemia type: iron deficiency Iron deficiency anemia type: chronic blood loss Qualified Code(s): D50.0 - Iron deficiency anemia secondary to blood loss (chronic) Hospital course: see assessment and plan for hospital course - Time Spent with Patient Total time spent providing and/or coordinating discharge services: - Discharge Medications Home Medications: Aspirin [Adult Low Dose Aspirin EC] 81 mg PO DAILY 05/19/15 [History] Ropinirole HCl [Requip Xl] 2 mg PO HS 05/19/15 [History] Vitamin D3/Folic Acid [Ortho D 3,775 Unit-1 mg Cap] 1,000 cap PO DAILY 05/19/15 [History] Sennosides [Senna] 2 tab PO HS #60 tablet 01/06/16 [Rx] Lisinopril [Zestril] 10 mg PO QPM 02/27/16 [History] Oxycodone HCl [Oxaydo] 5 mg PO Q2H PRN #90 tablet.orl 10/19/16 [Rx] Alendronate Sodium [Fosamax] 70 mg PO QWEEK #12 tablet 04/09/17 [Rx] Potassium Chloride 20 meq PO BID #60 tab.er.prt 10/21/17 [Rx] Furosemide [Lasix] 40 mg PO DAILY 11/05/17 [History] Levothyroxine [Levothyroxine Sodium] 137 mcg PO DAILY 02/05/18 [History] Ondansetron HCl [Zofran] 4 mg PO Q4H PRN #30 tablet 02/05/18 [Rx] Gabapentin [Neurontin] 300 mg PO BID 30 Days #60 capsule 02/21/18 [Rx] Metoprolol [Lopressor] 12.5 mg PO BID #30 tablet 04/02/18 [Rx] Allergies/Adverse Reactions: Allergy/AdvReac Type Severity Reaction Status Date / Time adhesive Allergy Unknown Blister Verified 03/21/18 13:39 Penicillins [PCN] Allergy Unknown Hives Verified 03/21/18 13:39 Sulfa (Sulfonamide Allergy Unknown Hives Verified 03/21/18 13:39 Antibiotics) Date of admission: 04/03/18 23:45 Primary care physician: Moose Villalta MD Consults: 04/04/18 00:28 Consult to Physical Therapy [CONS] Routine Comment: Evaluate, develop and implement POC Reason for Consult: PT eval Does patient have active BEDREST order?: No Is patient medically & hemodynamically stable?: Yes Discharging clinician: Sharmaine Kramer Anticipated date of discharge: 04/06/18 - Constitutional Vitals: Temp Pulse Resp BP Pulse Ox 97.7 F 70 15 152/77 98 04/06/18 08:29 04/06/18 08:29 04/06/18 08:29 04/06/18 08:29 04/06/18 08:29 General appearance: Present: A&O X 3, morbidly obese, pleasant Exam: . - Head Head exam: Present: atraumatic, normocephalic - Eye Eye exam: Present: PERRL, conjuntiva pink, sclera anicteric Pupils: Present: PERRL - Neck Neck exam general surgery: Present: supple, trachea midline. Absent: lymphadenopathy - Respiratory Respiratory exam: Present: CTAB. Absent: accessory muscle use, rales, rhonchi, wheezes - Cardiovascular Cardiovascular exam: Present: RRR, +S1, +S2. Absent: diastolic murmur, gallop, rubs, systolic murmur - GI/Abdominal GI/Abdominal exam: Present: normal bowel sounds, soft, no peritoneal signs. Absent: distended, tenderness - Extremities Exam Extremities exam: Present: warm, radial pulses palpable and symmetrical. Absent: calf tenderness, cyanotic, pedal edema - Neurological Exam Neurological exam: Present: CN II-XII intact, oriented X3, no focal deficits. Absent: pronater drift, facial droop, speech deficit - Skin Skin exam: Present: dry, intact - Patient Status Disposition: Home, Self-Care Condition: Good Functional capacity at discharge: independent ambulation Overall status at discharge: patient is back to baseline - Discharge Instructions Instructions: Gastroenteritis (DC) Follow Up With: Moose Villalta MD [Primary Care Provider] - (Follow up appointment as been requested. ) - Diet and Activity Activity: increase activity as tolerated Diet: advance to your usual diet
[2018-04-06] MEDS ORDERED: amLODIPine 5 MG TABLET PO SCH (09:15)
[2018-04-06] MEDS: ORTHO D PO SCH (10:47)
== END 2018-04-06 12:52 | disposition home or self-care (01) | DRG 392 ==
LOC: EMEROOARM 18:20 → 3BNU 18:20
PROVIDERS: ADMIT Pediatrics; ATTEND Pediatrics

== ENCOUNTER 2019-03-12 08:13 | Inpatient (IN) ==
[2019-03-12] MEDS ORDERED: *HR* HYDROmorphone (PF) 1 MG/ML SYRINGE IVP ONE (08:30)
[2019-03-12 08:57] LABS: Basophils % 0.3 %; Segmented Neutrophils % 57.8 %
[2019-03-12 08:59] LABS: Eosinophils # 0.2 K/mcL (0.0-0.6); Eosinophils % 5.5 %; Hematocrit 31.8 % (35.3-44.9); Hemoglobin 11.2 g/dL (11.5-15.4); Immature Granulocytes % 0.3 % (0-4); Immature Platelets 3.2 % (1.1-6.1); Lymphocytes # 0.9 K/mcL (0.6-4.6); Lymphocytes % 27.6 %; Mean Corpuscular HGB Conc 35.2 g/dL (31.6-35.5); Mean Corpuscular Hemoglobin 38.5 pg (28.0-33.3); Mean Corpuscular Volume 109.3 fL (83.0-100.0); Mean Platelet Volume 10.8 fL (9.4-12.4); Monocytes # 0.3 K/mcL (0.0-1.3); Monocytes % 8.5 %; Neutrophils # 1.9 K/mcL (1.6-8.9); Red Blood Count 2.91 M/mcL (3.82-4.97); Red Cell Distribution Width 14.9 % (11.5-14.5); White Blood Count 3.3 K/mcL (4.3-11.1)
[2019-03-12 09:02] LABS: Platelet Count 70 K/mcL (140-400)
[2019-03-12 09:19] LABS: Albumin 3.6 g/dL (3.5-5.7); Albumin/Globulin Ratio 1.3 (1.1-2.2); Bilirubin,Direct 0.2 mg/dL (0.0-0.2); Bilirubin,Indirect 0.7 mg/dL (0.0-1.0); Bilirubin,Total 0.9 mg/dL (0.3-1.0); Globulin 2.8 g/dL (2.4-3.5); Potassium 3.8 mEq/L (3.5-5.1); Total Protein 6.4 g/dL (6.4-8.9)
[2019-03-12] MEDS ORDERED: *HR* FentaNYL (PF) 100 MCG/2 ML VIAL IVP ONE (09:33)
[2019-03-12] MEDS ORDERED: Ondansetron 4 MG/2 ML VIAL IVP PRN (11:12)
[2019-03-12] MEDS ORDERED: Acetaminophen 325 MG TABLET PO PRN (11:12)
[2019-03-12] MEDS ORDERED: Naloxone 0.4 MG/ML INJ IVP PRN (11:12)
[2019-03-12] MEDS ORDERED: Furosemide 40 MG TABLET PO PRN (11:16)
[2019-03-12] MEDS ORDERED: Sennosides 8.6 MG TABLET PO PRN (11:16)
[2019-03-12] MEDS: Gabapentin 300 MG CAPSULE PO SCH ×2 (15:49→21:24)
[2019-03-12] MEDS ORDERED: cloNIDine HCl 0.1 MG TABLET PO ONE (15:55)
[2019-03-12] MEDS: *HR* Heparin 5,000 UNIT/ML VIAL SQ SCH (18:38)
[2019-03-12] MEDS: rOPINIRole 1 MG TABLET PO SCH (21:24)
[2019-03-12] MEDS: *HR* HYDROcodone/Acet 5/325 mg TABLET PO PRN (21:24)
[2019-03-13] MEDS: *HR* OxyCODONE Immed Rel 5 MG TABLET PO PRN ×4 (00:48→23:17)
[2019-03-13 04:59] LABS: Basophils % 0.3 %; Hemoglobin 10.8 g/dL (11.5-15.4); Immature Granulocytes % 0.3 % (0-4); Red Cell Distribution Width 14.9 % (11.5-14.5)
[2019-03-13 05:00] LABS: Eosinophils # 0.2 K/mcL (0.0-0.6); Eosinophils % 7.4 %; Hematocrit 30.6 % (35.3-44.9); Immature Platelets 3.5 % (1.1-6.1); Lymphocytes # 0.9 K/mcL (0.6-4.6); Lymphocytes % 29.8 %; Mean Corpuscular HGB Conc 35.3 g/dL (31.6-35.5); Mean Corpuscular Hemoglobin 38.7 pg (28.0-33.3); Mean Corpuscular Volume 109.7 fL (83.0-100.0); Mean Platelet Volume 10.2 fL (9.4-12.4); Monocytes # 0.3 K/mcL (0.0-1.3); Monocytes % 8.4 %; Neutrophils # 1.6 K/mcL (1.6-8.9); Red Blood Count 2.79 M/mcL (3.82-4.97); Segmented Neutrophils % 53.8 %
[2019-03-13 05:02] LABS: Platelet Count 67 K/mcL (140-400)
[2019-03-13 05:03] LABS: INR 1.3; Prothrombin Time 14.4 Seconds (9.4-12.1)
[2019-03-13 05:06] LABS: Activated Partial Thrombo Time 32.9 Seconds (26.0-36.0)
[2019-03-13 05:19] LABS: BUN/Creatinine Ratio 24 (6-26); Blood Urea Nitrogen 22 mg/dL (8-23); Calcium 8.7 mg/dL (8.6-10.3); Carbon Dioxide 24 mEq/L (23-29); Chloride 109 mEq/L (98-107); Glucose 96 mg/dL (70-105); Osmolality,Calculated 285 (280-300); Potassium 4.2 mEq/L (3.5-5.1); Sodium 136 mEq/L (136-145); eGFR For African Americans > 60 (> 60); eGFR For Non-African Americans 58 (> 60)
[2019-03-13 05:32] LABS: Thyroid Stimulating Hormone 2.309 mcIU/mL (0.340-5.600)
[2019-03-13] MEDS: *HR* Heparin 5,000 UNIT/ML VIAL SQ SCH ×2 (06:28→16:36)
[2019-03-13] MEDS: *HR* HYDROcodone/Acet 5/325 mg TABLET PO PRN (06:31)
[2019-03-13] MEDS ORDERED: 0.9 % Sodium Chloride 500 ML ONE ×2 (07:05→08:05)
[2019-03-13] MEDS ORDERED: *HR* Midazolam HCl 2 MG/2 ML VIAL IVP ONE (08:07)
[2019-03-13] MEDS ORDERED: *HR* FentaNYL (PF) 100 MCG/2 ML VIAL IVP ONE (08:07)
[2019-03-13] MEDS ORDERED: Clindamycin 600 MG/50 ML 600 MG/50 ML IV.SOLN IVPB ONE (08:07)
[2019-03-13] MEDS ORDERED: *HR* FentaNYL (PF) 100 MCG/2 ML VIAL ONE (08:09)
[2019-03-13] MEDS ORDERED: *HR* Midazolam HCl 2 MG/2 ML VIAL ONE (08:10)
[2019-03-13] MEDS ORDERED: Cholecalciferol (D-3) 1,000 UNIT (25MCG) TABLET PO SCH (09:00)
[2019-03-13] MEDS ORDERED: Cyanocobalamin (B-12) 1,000 MCG TABLET PO SCH (09:00)
[2019-03-13] MEDS: Gabapentin 300 MG CAPSULE PO SCH ×3 (10:41→21:04)
[2019-03-13] MEDS: rOPINIRole 1 MG TABLET PO SCH (21:04)
[2019-03-14] MEDS: *HR* Heparin 5,000 UNIT/ML VIAL SQ SCH (04:56)
[2019-03-14 05:59] LABS: Hematocrit 31.1 % (35.3-44.9); Hemoglobin 10.9 g/dL (11.5-15.4); Immature Platelets 3.7 % (1.1-6.1); Mean Corpuscular Hemoglobin 38.5 pg (28.0-33.3); Mean Corpuscular Volume 109.9 fL (83.0-100.0); Mean Platelet Volume 11.1 fL (9.4-12.4); Red Blood Count 2.83 M/mcL (3.82-4.97); Red Cell Distribution Width 15.1 % (11.5-14.5); White Blood Count 3.5 K/mcL (4.3-11.1)
[2019-03-14 06:20] LABS: Calcium 8.8 mg/dL (8.6-10.3); Potassium 4.2 mEq/L (3.5-5.1)
[2019-03-14 19:31] VITALS: BP 165/84
== END 2019-03-14 14:40 | disposition home or self-care (01) | DRG 516 ==
LOC: EMEROOARM 08:13 → CDU 08:13 → 3NENU 18:10
PROVIDERS: ADMIT Internal Medicine; ATTEND Student in an Organized Health Care Education/Training Program

== ENCOUNTER 2019-08-17 16:24 | Inpatient (IN) ==
[2019-08-17] MEDS ORDERED: Ondansetron 4 MG/2 ML VIAL IVP ONE (16:31)
[2019-08-17] MEDS ORDERED: Isovue-370 500 ML BOTTLE IVP ONE (16:31)
[2019-08-17] MEDS ORDERED: 0.9 % Sodium Chloride 1,000 ML IVC ONE (16:31)
[2019-08-17 17:09] LABS: Basophils % 0.2 %; Eosinophils % 3.9 %
[2019-08-17 17:12] LABS: Eosinophils # 0.2 K/mcL (0.0-0.6); Hemoglobin 11.8 g/dL (11.5-15.4); Immature Granulocytes % 0.2 % (0-4); Immature Platelets 2.5 % (1.1-6.1); Lymphocytes % 18.8 %; Mean Corpuscular HGB Conc 32.8 g/dL (31.6-35.5); Mean Corpuscular Hemoglobin 37.1 pg (28.0-33.3); Mean Corpuscular Volume 113.2 fL (83.0-100.0); Mean Platelet Volume 10.3 fL (9.4-12.4); Monocytes # 0.3 K/mcL (0.0-1.3); Monocytes % 5.8 %; Neutrophils # 3.8 K/mcL (1.6-8.9); Platelet Count 91 K/mcL (140-400); Red Blood Count 3.18 M/mcL (3.82-4.97); Red Cell Distribution Width 14.6 % (11.5-14.5); Segmented Neutrophils % 71.1 %; White Blood Count 5.3 K/mcL (4.3-11.1)
[2019-08-17 17:20] LABS: Alanine Aminotransferase 8 Units/L (7-52); Albumin 3.5 g/dL (3.5-5.7); Albumin/Globulin Ratio 1.1 (1.1-2.2); Alkaline Phosphatase 92 Units/L (34-104); Aspartate Amino Transferase 17 Units/L (13-39); BUN/Creatinine Ratio 19 (6-26); Blood Urea Nitrogen 19 mg/dL (8-23); Calcium 8.9 mg/dL (8.6-10.3); Carbon Dioxide 27 mEq/L (23-29); Chloride 105 mEq/L (98-107); Globulin 3.3 g/dL (2.4-3.5); Glucose 133 mg/dL (70-105); Lipase 7 Units/L (11-82); Osmolality,Calculated 290 (280-300); Potassium 4.4 mEq/L (3.5-5.1); Sodium 138 mEq/L (136-145); Total Protein 6.8 g/dL (6.4-8.9); eGFR For African Americans > 60 (> 60); eGFR For Non-African Americans 53 (> 60)
[2019-08-17] MEDS ORDERED: *HR* HYDROmorphone (PF) 1 MG/ML SYRINGE IVP ONE (17:44)
[2019-08-17 17:55] LABS: Macrocytosis Present (Not Present); Platelet Estimate Decreased (Normal)
[2019-08-17] MEDS ORDERED: MetroNIDAZOLE 500 MG/100 ML 500 MG/100 ML BAG IVPB ONE (19:22)
[2019-08-17 19:32] LABS: Bilirubin,Urine Negative (Negative); Blood,Urine Negative (Negative); Clarity,Urine Clear (Clear); Color,Urine Yellow (Yellow); Glucose,Urine (UA) Normal (Normal); Ketones,Urine Negative (Negative); Leukocyte Esterase,Urine Negative (Negative); Nitrite,Urine Negative (Negative); Protein,Urine Negative (Neg-Trace); Specific Gravity,Urine 1.018 (1.010-1.025); Urobilinogen,Urine Normal (Normal)
[2019-08-17] MEDS ORDERED: Naloxone 0.4 MG/ML INJ IVP PRN (19:47)
[2019-08-17] MEDS ORDERED: 0.9 % Sodium Chloride 1,000 ML IVC SCH (20:00)
[2019-08-17] MEDS: Ondansetron 4 MG/2 ML VIAL IVP PRN (23:11)
[2019-08-18] MEDS ORDERED: *HR* Promethazine 25 MG/ML VIAL IV PRN ×3 (00:44→04:49)
[2019-08-18 02:27] LABS: Hemoglobin 11.4 g/dL (11.5-15.4); Mean Corpuscular Volume 111.1 fL (83.0-100.0)
[2019-08-18 02:29] LABS: Hematocrit 34.1 % (35.3-44.9); Immature Platelets 2.9 % (1.1-6.1); Mean Corpuscular HGB Conc 33.4 g/dL (31.6-35.5); Mean Corpuscular Hemoglobin 37.1 pg (28.0-33.3); Mean Platelet Volume 10.5 fL (9.4-12.4); Red Blood Count 3.07 M/mcL (3.82-4.97); Red Cell Distribution Width 14.8 % (11.5-14.5); White Blood Count 6.4 K/mcL (4.3-11.1)
[2019-08-18 02:33] LABS: BUN/Creatinine Ratio 17 (6-26); Blood Urea Nitrogen 18 mg/dL (8-23); Calcium 8.7 mg/dL (8.6-10.3); Carbon Dioxide 24 mEq/L (23-29); Chloride 107 mEq/L (98-107); Glucose 148 mg/dL (70-105); Osmolality,Calculated 289 (280-300); Potassium 4.3 mEq/L (3.5-5.1); Sodium 137 mEq/L (136-145); eGFR For African Americans > 60 (> 60); eGFR For Non-African Americans 50 (> 60)
[2019-08-18] MEDS ORDERED: NON-FORMULARY MEDICATION 1 EACH EACH (Alendronate Sodium [Fosamax] 70 MG) PO SCH (04:45)
[2019-08-18] MEDS ORDERED: *HR* Promethazine 25 MG/ML VIAL IVP ONE (04:48)
[2019-08-18] MEDS: Ondansetron 4 MG/2 ML VIAL IVP PRN ×2 (07:46→15:47)
[2019-08-18] MEDS: 0.9 % Sodium Chloride 1,000 ML IVC SCH ×2 (07:46→15:14)
[2019-08-18] MEDS: MetroNIDAZOLE 500 MG/100 ML 500 MG/100 ML BAG IVPB SCH ×2 (07:50→15:41)
[2019-08-18] MEDS: lisinopriL 10 MG TABLET PO SCH (09:05)
[2019-08-18] MEDS: Apixaban 2.5 MG TABLET PO SCH ×2 (09:06→20:39)
[2019-08-18] MEDS: Gabapentin 300 MG CAPSULE PO SCH (20:39)
[2019-08-18] MEDS ORDERED: rOPINIRole 1 MG TABLET PO SCH (21:00)
[2019-08-19] MEDS: MetroNIDAZOLE 500 MG/100 ML 500 MG/100 ML BAG IVPB SCH ×2 (00:18→07:46)
[2019-08-19] MEDS: 0.9 % Sodium Chloride 1,000 ML IVC SCH (04:38)
[2019-08-19 05:03] LABS: Basophils % 0.3 %; Eosinophils % 7.1 %; Immature Granulocytes % 0.3 % (0-4)
[2019-08-19 05:05] LABS: Eosinophils # 0.3 K/mcL (0.0-0.6); Hematocrit 29.4 % (35.3-44.9); Hemoglobin 9.5 g/dL (11.5-15.4); Immature Platelets 2.3 % (1.1-6.1); Lymphocytes % 25.1 %; Mean Corpuscular HGB Conc 32.3 g/dL (31.6-35.5); Mean Corpuscular Volume 114.4 fL (83.0-100.0); Mean Platelet Volume 10.6 fL (9.4-12.4); Monocytes # 0.3 K/mcL (0.0-1.3); Monocytes % 8.6 %; Neutrophils # 2.2 K/mcL (1.6-8.9); Red Blood Count 2.57 M/mcL (3.82-4.97); Segmented Neutrophils % 58.6 %; White Blood Count 3.8 K/mcL (4.3-11.1)
[2019-08-19 05:12] LABS: Platelet Count 78 K/mcL (140-400)
[2019-08-19 05:23] LABS: BUN/Creatinine Ratio 15 (6-26); Blood Urea Nitrogen 14 mg/dL (8-23); Calcium 8.3 mg/dL (8.6-10.3); Carbon Dioxide 23 mEq/L (23-29); Chloride 111 mEq/L (98-107); Glucose 93 mg/dL (70-105); Osmolality,Calculated 290 (280-300); Potassium 3.8 mEq/L (3.5-5.1); Sodium 140 mEq/L (136-145); eGFR For African Americans > 60 (> 60); eGFR For Non-African Americans 56 (> 60)
[2019-08-19 05:38] LABS: Platelet Estimate Decreased (Normal)
[2019-08-19 07:20] VITALS: BP 125/68
[2019-08-19] MEDS: lisinopriL 10 MG TABLET PO SCH (07:46)
[2019-08-19] MEDS: Apixaban 2.5 MG TABLET PO SCH (07:46)
[2019-08-19] MEDS: Gabapentin 300 MG CAPSULE PO SCH (07:46)
== END 2019-08-19 12:02 | disposition home or self-care (01) ==
LOC: EMEROOARM 16:24 → 3ANU 16:24 → SUATTDRO 20:03 → 3ANU 20:35 → SUATTDRO 08-18 10:16
PROVIDERS: ADMIT Internal Medicine; ATTEND Internal Medicine

== ENCOUNTER 2020-02-19 19:10 | Inpatient (IN) ==
[2020-02-19 20:12] LABS: Eosinophils % 0.5 %; Hematocrit 21.1 % (35.3-44.9); Hemoglobin 6.8 g/dL (11.5-15.4); Immature Granulocytes % 1.6 % (0-4); Lymphocytes # 0.7 K/mcL (0.6-4.6); Lymphocytes % 36.6 %; Mean Corpuscular HGB Conc 32.2 g/dL (31.6-35.5); Mean Corpuscular Hemoglobin 36.2 pg (28.0-33.3); Mean Corpuscular Volume 112.2 fL (83.0-100.0); Mean Platelet Volume 10.5 fL (9.4-12.4); Monocytes # 0.1 K/mcL (0.0-1.3); Monocytes % 2.6 %; Neutrophils # 1.1 K/mcL (1.6-8.9); Red Blood Count 1.88 M/mcL (3.82-4.97); Red Cell Distribution Width 15.2 % (11.5-14.5); Segmented Neutrophils % 58.7 %; White Blood Count 1.9 K/mcL (4.3-11.1)
[2020-02-19 20:13] LABS: Platelet Count 38 K/mcL (140-400)
[2020-02-19 20:34] LABS: BUN/Creatinine Ratio 21 (6-26); Blood Urea Nitrogen 25 mg/dL (8-23); Calcium 8.6 mg/dL (8.6-10.3); Carbon Dioxide 24 mEq/L (23-29); Chloride 109 mEq/L (98-107); Glucose 108 mg/dL (70-105); Osmolality,Calculated 291 (280-300); Potassium 4.6 mEq/L (3.5-5.1); Sodium 138 mEq/L (136-145); Troponin I < 0.03 ng/mL (< 0.04); eGFR For African Americans 51 (> 60); eGFR For Non-African Americans 42 (> 60)
[2020-02-19 20:37] LABS: Bacteria,Urine Few per hpf (None-Few); Bilirubin,Urine Negative (Negative); Blood,Urine Negative (Negative); Clarity,Urine Clear (Clear); Color,Urine Light-Yellow (Yellow); Glucose,Urine (UA) Normal (Normal); Ketones,Urine Negative (Negative); Leukocyte Esterase,Urine Trace (Negative); Nitrite,Urine Negative (Negative); Protein,Urine Negative (Neg-Trace); RBC,Urine 0-3 per hpf (0-3); Specific Gravity,Urine 1.014 (1.010-1.025); Squamous Epithelial Cell,Urine Few per hpf (None-Few); Urobilinogen,Urine Normal (Normal)
[2020-02-19 20:38] LABS: Anisocytosis 1+ (Not Present); Platelet Estimate Decreased (Normal)
[2020-02-19 20:39] LABS: Macrocytosis Present (Not Present)
[2020-02-19] MEDS ORDERED: Naloxone 0.4 MG/ML INJ IVP PRN (22:00)
[2020-02-19] MEDS ORDERED: 0.9 % Sodium Chloride 250 ML ONE (22:18)
[2020-02-19] MEDS: rOPINIRole 1 MG TABLET PO SCH (22:55)
[2020-02-20 04:59] LABS: Hematocrit 21.8 % (35.3-44.9); Hemoglobin 7.1 g/dL (11.5-15.4); Immature Platelets 3.4 % (1.1-6.1); Mean Corpuscular HGB Conc 32.6 g/dL (31.6-35.5); Mean Corpuscular Hemoglobin 34.5 pg (28.0-33.3); Mean Corpuscular Volume 105.8 fL (83.0-100.0); Mean Platelet Volume 11.3 fL (9.4-12.4); Red Blood Count 2.06 M/mcL (3.82-4.97); Red Cell Distribution Width 17.6 % (11.5-14.5); White Blood Count 1.8 K/mcL (4.3-11.1)
[2020-02-20 05:16] LABS: BUN/Creatinine Ratio 23 (6-26); Blood Urea Nitrogen 23 mg/dL (8-23); Calcium 8.4 mg/dL (8.6-10.3); Carbon Dioxide 23 mEq/L (23-29); Chloride 109 mEq/L (98-107); Glucose 105 mg/dL (70-105); Osmolality,Calculated 290 (280-300); Potassium 4.4 mEq/L (3.5-5.1); Sodium 138 mEq/L (136-145); eGFR For African Americans > 60 (> 60); eGFR For Non-African Americans 51 (> 60)
[2020-02-20] MEDS ORDERED: 0.9 % Sodium Chloride 500 ML ONE (07:47)
[2020-02-20] MEDS ORDERED: polyethylene glycoL 3350 17 GM POWD.PACK PO PRN (09:00)
[2020-02-20] MEDS: Cholecalciferol (D-3) 1,000 UNIT (25MCG) TABLET PO SCH (13:41)
[2020-02-20] MEDS: lisinopriL 10 MG TABLET PO SCH (13:42)
[2020-02-20] MEDS: TRIFLURIDINE PO SCH ×2 (13:44→21:38)
[2020-02-20] MEDS: TIPIRACIL HCL PO SCH ×2 (13:44→21:38)
[2020-02-20] MEDS ORDERED: Ondansetron 4 MG/2 ML VIAL IVP PRN (20:48)
[2020-02-20] MEDS: rOPINIRole 1 MG TABLET PO SCH (21:35)
[2020-02-21 01:25] LABS: Hematocrit 27.6 % (35.3-44.9); Hemoglobin 8.9 g/dL (11.5-15.4); Immature Platelets 2.4 % (1.1-6.1); Mean Corpuscular HGB Conc 32.2 g/dL (31.6-35.5); Mean Corpuscular Hemoglobin 34.1 pg (28.0-33.3); Mean Corpuscular Volume 105.7 fL (83.0-100.0); Mean Platelet Volume 10.7 fL (9.4-12.4); Red Blood Count 2.61 M/mcL (3.82-4.97); Red Cell Distribution Width 17.1 % (11.5-14.5)
[2020-02-21 01:35] LABS: BUN/Creatinine Ratio 25 (6-26); Blood Urea Nitrogen 22 mg/dL (8-23); Calcium 8.7 mg/dL (8.6-10.3); Carbon Dioxide 20 mEq/L (23-29); Chloride 108 mEq/L (98-107); Glucose 101 mg/dL (70-105); Osmolality,Calculated 285 (280-300); Potassium 4.4 mEq/L (3.5-5.1); Sodium 136 mEq/L (136-145); eGFR For African Americans > 60 (> 60); eGFR For Non-African Americans > 60 (> 60)
[2020-02-21] MEDS: Cholecalciferol (D-3) 1,000 UNIT (25MCG) TABLET PO SCH (09:10)
[2020-02-21] MEDS: lisinopriL 10 MG TABLET PO SCH (09:10)
[2020-02-21 19:07] VITALS: BP 125/58
== END 2020-02-21 11:04 | disposition home or self-care (01) | DRG 809 ==
LOC: 3BNU 19:10 → EMEROOARM 19:10 → 3BNU 21:21
PROVIDERS: ADMIT Family Medicine; ATTEND Family Medicine

== ENCOUNTER 2020-10-26 22:08 | Inpatient (IN) ==
[2020-10-26] MEDS ORDERED: Ketorolac 15 MG/ML VIAL IVP ONE (22:42)
[2020-10-26] MEDS ORDERED: Ondansetron 4 MG/2 ML VIAL IVP ONE (22:42)
[2020-10-26] MEDS ORDERED: Isovue-370 500 ML BOTTLE IVP ONE (22:43)
[2020-10-26 22:53] LABS: Basophils % 0.3 %; Eosinophils % 7.9 %; Hemoglobin 9.9 g/dL (11.5-15.4); Immature Granulocytes % 0.3 % (0-4); Red Cell Distribution Width 14.6 % (11.5-14.5)
[2020-10-26 22:55] LABS: Eosinophils # 0.6 K/mcL (0.0-0.6); Hematocrit 31.3 % (35.3-44.9); Immature Platelets 4.3 % (1.1-6.1); Lymphocytes # 0.7 K/mcL (0.6-4.6); Lymphocytes % 10.7 %; Mean Corpuscular HGB Conc 31.6 g/dL (31.6-35.5); Mean Corpuscular Hemoglobin 32.9 pg (28.0-33.3); Mean Platelet Volume 10.1 fL (9.4-12.4); Monocytes # 0.3 K/mcL (0.0-1.3); Monocytes % 4.6 %; Neutrophils # 5.3 K/mcL (1.6-8.9); Red Blood Count 3.01 M/mcL (3.82-4.97); Segmented Neutrophils % 76.2 %; White Blood Count 6.9 K/mcL (4.3-11.1)
[2020-10-26 22:56] LABS: Platelet Count 82 K/mcL (140-400)
[2020-10-26 23:13] LABS: Albumin 3.4 g/dL (3.5-5.7); Bilirubin,Direct 0.2 mg/dL (0.0-0.2); Bilirubin,Indirect 0.7 mg/dL (0.0-1.0); Bilirubin,Total 0.9 mg/dL (0.3-1.0); Calcium 8.9 mg/dL (8.6-10.3); Potassium 3.9 mEq/L (3.5-5.1)
[2020-10-26 23:15] LABS: Bacteria,Urine Few per hpf (None-Few); Bilirubin,Urine Negative (Negative); Blood,Urine Trace (Negative); Clarity,Urine Clear (Clear); Color,Urine Yellow (Yellow); Glucose,Urine (UA) Normal (Normal); Ketones,Urine Negative (Negative); Leukocyte Esterase,Urine Large (Negative); Mucus,Urine Few per lpf (None-Few); Nitrite,Urine Negative (Negative); Protein,Urine 30 mg/dL (Neg-Trace); Squamous Epithelial Cell,Urine Few per hpf (None-Few); Urobilinogen,Urine Normal (Normal); WBC,Urine 30-50 per hpf (0-3)
[2020-10-27 00:20] LABS: Albumin/Globulin Ratio 0.9 (1.1-2.2); Globulin 3.6 g/dL (2.4-3.5)
[2020-10-27] MEDS ORDERED: 0.9 % Sodium Chloride 1,000 ML IVC ONE ×3 (00:27→07:59)
[2020-10-27] MEDS ORDERED: Tetracaine/Benzocaine/Butamben 1 SPRAY AEROSOL MM ONE (01:03)
[2020-10-27] MEDS ORDERED: Naloxone 0.4 MG/ML INJ IVP PRN (02:18)
[2020-10-27] MEDS ORDERED: Melatonin 3 MG TABLET PO PRN (02:18)
[2020-10-27 03:15] LABS: Basophils % 0.4 %; Red Cell Distribution Width 14.4 % (11.5-14.5)
[2020-10-27 03:17] LABS: Eosinophils # 0.4 K/mcL (0.0-0.6); Eosinophils % 7.2 %; Hemoglobin 8.7 g/dL (11.5-15.4); Immature Granulocytes % 0.2 % (0-4); Immature Platelets 2.9 % (1.1-6.1); Lymphocytes # 0.7 K/mcL (0.6-4.6); Lymphocytes % 12.4 %; Mean Corpuscular HGB Conc 32.2 g/dL (31.6-35.5); Mean Corpuscular Hemoglobin 33.5 pg (28.0-33.3); Mean Corpuscular Volume 103.8 fL (83.0-100.0); Mean Platelet Volume 10.4 fL (9.4-12.4); Monocytes # 0.3 K/mcL (0.0-1.3); Neutrophils # 4.2 K/mcL (1.6-8.9); Segmented Neutrophils % 74.8 %; White Blood Count 5.6 K/mcL (4.3-11.1)
[2020-10-27 03:31] LABS: Alanine Aminotransferase 5 Units/L (7-52); Albumin 2.9 g/dL (3.5-5.7); Albumin/Globulin Ratio 0.9 (1.1-2.2); Alkaline Phosphatase 60 Units/L (34-104); Aspartate Amino Transferase 10 Units/L (13-39); BUN/Creatinine Ratio 17 (6-26); Bilirubin,Total 0.6 mg/dL (0.3-1.0); Blood Urea Nitrogen 17 mg/dL (8-23); Carbon Dioxide 23 mEq/L (23-29); Chloride 104 mEq/L (98-107); Globulin 3.1 g/dL (2.4-3.5); Glucose 114 mg/dL (70-105); Osmolality,Calculated 280 (280-300); Phosphorous 3.5 mg/dL (2.7-4.5); Sodium 134 mEq/L (136-145); eGFR For African Americans > 60 (> 60); eGFR For Non-African Americans 51 (> 60)
[2020-10-27 04:01] LABS: Platelet Count 73 K/mcL (140-400)
[2020-10-27] MEDS ORDERED: Chloraseptic Spray 177 ML BOTTLE MM PRN (07:17)
[2020-10-27] MEDS: Ondansetron 4 MG/2 ML VIAL IVP PRN ×2 (10:54→21:56)
[2020-10-27] MEDS ORDERED: *HR* Heparin 5,000 UNIT/ML VIAL IVP PRN ×2 (16:17)
[2020-10-27 16:59] LABS: Hematocrit 29.2 % (35.3-44.9); Hemoglobin 9.2 g/dL (11.5-15.4); Immature Platelets 4.3 % (1.1-6.1); Mean Corpuscular HGB Conc 31.5 g/dL (31.6-35.5); Mean Corpuscular Volume 104.7 fL (83.0-100.0); Red Blood Count 2.79 M/mcL (3.82-4.97); Red Cell Distribution Width 14.5 % (11.5-14.5); White Blood Count 5.6 K/mcL (4.3-11.1)
[2020-10-27 17:04] LABS: Heparin anti-factor XA UFH < 0.04 IU/mL (0.30-0.70)
[2020-10-27 17:05] LABS: INR 1.3; Prothrombin Time 14.5 Seconds (9.4-12.1)
[2020-10-27] MEDS: Heparin 25,000UNIT/250ML 1/2NS 25,000 UNIT/250 ML IV.SOLN IVC SCH (17:27)
[2020-10-27] MEDS: Methyl Salicylate/Menthol 85 APPL/85 GM TUBE TP PRN (23:45)
[2020-10-28 01:07] LABS: Mean Platelet Volume 10.4 fL (9.4-12.4); Red Blood Count 2.78 M/mcL (3.82-4.97); Red Cell Distribution Width 14.4 % (11.5-14.5)
[2020-10-28 01:09] LABS: Basophils % 0.4 %; Eosinophils # 0.6 K/mcL (0.0-0.6); Eosinophils % 10.7 %; Hematocrit 29.7 % (35.3-44.9); Hemoglobin 9.2 g/dL (11.5-15.4); Immature Granulocytes % 0.5 % (0-4); Lymphocytes # 0.8 K/mcL (0.6-4.6); Lymphocytes % 13.9 %; Mean Corpuscular Hemoglobin 33.1 pg (28.0-33.3); Mean Corpuscular Volume 106.8 fL (83.0-100.0); Monocytes # 0.3 K/mcL (0.0-1.3); Monocytes % 4.8 %; Neutrophils # 3.9 K/mcL (1.6-8.9); Platelet Count 80 K/mcL (140-400); Segmented Neutrophils % 69.7 %; White Blood Count 5.6 K/mcL (4.3-11.1)
[2020-10-28 01:24] LABS: BUN/Creatinine Ratio 16 (6-26); Blood Urea Nitrogen 15 mg/dL (8-23); Calcium 8.4 mg/dL (8.6-10.3); Carbon Dioxide 22 mEq/L (23-29); Chloride 108 mEq/L (98-107); Glucose 97 mg/dL (70-105); Osmolality,Calculated 287 (280-300); Potassium 4.1 mEq/L (3.5-5.1); Sodium 138 mEq/L (136-145); eGFR For African Americans > 60 (> 60); eGFR For Non-African Americans 56 (> 60)
[2020-10-28 01:25] LABS: Magnesium 2.1 mg/dL (1.6-2.6); Phosphorous 2.8 mg/dL (2.7-4.5)
[2020-10-28] MEDS: Furosemide 20 MG/2 ML VIAL IVP SCH (08:52)
[2020-10-28] MEDS: 0.9 % Sodium Chloride 1,000 ML IVC SCH (16:58)
[2020-10-28] MEDS: Heparin 25,000UNIT/250ML 1/2NS 25,000 UNIT/250 ML IV.SOLN IVC SCH (21:48)
[2020-10-29 04:51] LABS: Red Cell Distribution Width 14.6 % (11.5-14.5)
[2020-10-29 04:53] LABS: Basophils % 0.6 %; Eosinophils # 0.5 K/mcL (0.0-0.6); Eosinophils % 10.2 %; Hematocrit 29.2 % (35.3-44.9); Immature Granulocytes % 0.6 % (0-4); Immature Platelets 3.4 % (1.1-6.1); Lymphocytes % 19.1 %; Mean Corpuscular HGB Conc 30.8 g/dL (31.6-35.5); Mean Corpuscular Hemoglobin 32.6 pg (28.0-33.3); Mean Corpuscular Volume 105.8 fL (83.0-100.0); Mean Platelet Volume 10.4 fL (9.4-12.4); Monocytes # 0.3 K/mcL (0.0-1.3); Monocytes % 6.1 %; Red Blood Count 2.76 M/mcL (3.82-4.97); Segmented Neutrophils % 63.4 %; White Blood Count 5.1 K/mcL (4.3-11.1)
[2020-10-29 04:57] LABS: Neutrophils # 3.2 K/mcL (1.6-8.9); Platelet Count 82 K/mcL (140-400)
[2020-10-29 05:05] LABS: BUN/Creatinine Ratio 16 (6-26); Blood Urea Nitrogen 15 mg/dL (8-23); Calcium 8.3 mg/dL (8.6-10.3); Carbon Dioxide 22 mEq/L (23-29); Chloride 107 mEq/L (98-107); Glucose 86 mg/dL (70-105); Osmolality,Calculated 290 (280-300); Phosphorous 2.8 mg/dL (2.7-4.5); Potassium 3.7 mEq/L (3.5-5.1); Sodium 140 mEq/L (136-145); eGFR For African Americans > 60 (> 60); eGFR For Non-African Americans 55 (> 60)
[2020-10-29] MEDS: 0.9 % Sodium Chloride 1,000 ML IVC SCH ×2 (06:23→19:30)
[2020-10-29] MEDS ORDERED: Sennosides/Docusate Sodium TABLET PO ONE (10:00)
[2020-10-29] MEDS: Ondansetron 4 MG/2 ML VIAL IVP PRN (19:29)
[2020-10-29] MEDS: Methyl Salicylate/Menthol 85 APPL/85 GM TUBE TP PRN (22:30)
[2020-10-30 00:38] LABS: Basophils % 0.3 %; Immature Granulocytes % 0.5 % (0-4); Red Blood Count 2.84 M/mcL (3.82-4.97); Red Cell Distribution Width 14.6 % (11.5-14.5)
[2020-10-30 00:40] LABS: Eosinophils # 0.6 K/mcL (0.0-0.6); Eosinophils % 9.9 %; Hematocrit 29.7 % (35.3-44.9); Hemoglobin 9.3 g/dL (11.5-15.4); Immature Platelets 3.1 % (1.1-6.1); Lymphocytes # 0.9 K/mcL (0.6-4.6); Lymphocytes % 15.5 %; Mean Corpuscular HGB Conc 31.3 g/dL (31.6-35.5); Mean Corpuscular Hemoglobin 32.7 pg (28.0-33.3); Mean Corpuscular Volume 104.6 fL (83.0-100.0); Mean Platelet Volume 9.6 fL (9.4-12.4); Monocytes # 0.4 K/mcL (0.0-1.3); Monocytes % 6.2 %; Platelet Count 90 K/mcL (140-400); Segmented Neutrophils % 67.6 %; White Blood Count 5.9 K/mcL (4.3-11.1)
[2020-10-30 00:55] LABS: BUN/Creatinine Ratio 17 (6-26); Blood Urea Nitrogen 15 mg/dL (8-23); Calcium 8.3 mg/dL (8.6-10.3); Carbon Dioxide 19 mEq/L (23-29); Chloride 109 mEq/L (98-107); Glucose 101 mg/dL (70-105); Osmolality,Calculated 287 (280-300); Potassium 3.6 mEq/L (3.5-5.1); Sodium 138 mEq/L (136-145); eGFR For African Americans > 60 (> 60); eGFR For Non-African Americans 59 (> 60)
[2020-10-30] MEDS: Furosemide 20 MG/2 ML VIAL IVP SCH (08:10)
[2020-10-30] MEDS: Heparin 25,000UNIT/250ML 1/2NS 25,000 UNIT/250 ML IV.SOLN IVC SCH (09:08)
[2020-10-30] MEDS: 0.9 % Sodium Chloride 1,000 ML IVC SCH (09:09)
[2020-10-30] MEDS: Apixaban 5 MG TABLET PO SCH (20:51)
[2020-10-30] MEDS: rOPINIRole 1 MG TABLET PO SCH (20:51)
[2020-10-31 04:22] LABS: Basophils % 0.4 %; Eosinophils # 0.5 K/mcL (0.0-0.6); Eosinophils % 10.6 %; Hematocrit 26.6 % (35.3-44.9); Hemoglobin 8.4 g/dL (11.5-15.4); Immature Granulocytes % 0.8 % (0-4); Immature Platelets 3.2 % (1.1-6.1); Lymphocytes # 0.8 K/mcL (0.6-4.6); Lymphocytes % 16.9 %; Mean Corpuscular HGB Conc 31.6 g/dL (31.6-35.5); Mean Corpuscular Hemoglobin 32.9 pg (28.0-33.3); Mean Corpuscular Volume 104.3 fL (83.0-100.0); Mean Platelet Volume 10.2 fL (9.4-12.4); Monocytes # 0.3 K/mcL (0.0-1.3); Monocytes % 6.8 %; Red Blood Count 2.55 M/mcL (3.82-4.97); Red Cell Distribution Width 14.6 % (11.5-14.5); Segmented Neutrophils % 64.5 %; White Blood Count 4.7 K/mcL (4.3-11.1)
[2020-10-31 04:25] LABS: Platelet Count 77 K/mcL (140-400)
[2020-10-31 04:38] LABS: BUN/Creatinine Ratio 11 (6-26); Blood Urea Nitrogen 10 mg/dL (8-23); Calcium 8.3 mg/dL (8.6-10.3); Carbon Dioxide 24 mEq/L (23-29); Chloride 105 mEq/L (98-107); Glucose 120 mg/dL (70-105); Osmolality,Calculated 282 (280-300); Potassium 3.2 mEq/L (3.5-5.1); Sodium 136 mEq/L (136-145); eGFR For African Americans > 60 (> 60); eGFR For Non-African Americans 59 (> 60)
[2020-10-31] MEDS: Apixaban 5 MG TABLET PO SCH ×2 (08:07→19:58)
[2020-10-31] MEDS: Cholecalciferol (D-3) 1,000 UNIT (25MCG) TABLET PO SCH (08:07)
[2020-10-31] MEDS: Sennosides/Docusate Sodium TABLET PO PRN (08:11)
[2020-10-31] MEDS: Ondansetron 4 MG/2 ML VIAL IVP PRN (08:30)
[2020-10-31] MEDS ORDERED: Potassium Chloride Elixir 20 MEQ/15 ML UDC PO ONE (09:00)
[2020-10-31] MEDS ORDERED: lisinopriL 10 MG TABLET PO SCH (09:00)
[2020-10-31] MEDS ORDERED: lisinopriL 10 MG TABLET PO ONE (11:24)
[2020-10-31] MEDS ORDERED: Milk and Molasses Enema 200 ML RC ONE (15:00)
[2020-10-31 16:58] LABS: Hematocrit 27.7 % (35.3-44.9); Hemoglobin 8.9 g/dL (11.5-15.4)
[2020-10-31] MEDS: rOPINIRole 1 MG TABLET PO SCH (19:58)
[2020-11-01 06:22] LABS: Hematocrit 26.7 % (35.3-44.9); Mean Corpuscular Volume 103.1 fL (83.0-100.0); Red Blood Count 2.59 M/mcL (3.82-4.97)
[2020-11-01 06:24] LABS: Basophils % 0.2 %; Eosinophils # 0.5 K/mcL (0.0-0.6); Eosinophils % 10.3 %; Hemoglobin 8.6 g/dL (11.5-15.4); Immature Granulocytes % 0.8 % (0-4); Immature Platelets 4.1 % (1.1-6.1); Lymphocytes % 18.8 %; Mean Corpuscular HGB Conc 32.2 g/dL (31.6-35.5); Mean Corpuscular Hemoglobin 33.2 pg (28.0-33.3); Mean Platelet Volume 9.7 fL (9.4-12.4); Monocytes # 0.4 K/mcL (0.0-1.3); Monocytes % 7.2 %; Neutrophils # 3.3 K/mcL (1.6-8.9); Red Cell Distribution Width 14.7 % (11.5-14.5); Segmented Neutrophils % 62.7 %; White Blood Count 5.2 K/mcL (4.3-11.1)
[2020-11-01 06:26] LABS: Platelet Count 77 K/mcL (140-400)
[2020-11-01 06:38] LABS: BUN/Creatinine Ratio 9 (6-26); Blood Urea Nitrogen 7 mg/dL (8-23); Calcium 8.7 mg/dL (8.6-10.3); Carbon Dioxide 24 mEq/L (23-29); Chloride 105 mEq/L (98-107); Glucose 113 mg/dL (70-105); Osmolality,Calculated 279 (280-300); Potassium 3.6 mEq/L (3.5-5.1); Sodium 135 mEq/L (136-145); eGFR For African Americans > 60 (> 60); eGFR For Non-African Americans > 60 (> 60)
[2020-11-01] MEDS: Apixaban 5 MG TABLET PO SCH ×2 (08:27→19:51)
[2020-11-01] MEDS: lisinopriL 10 MG TABLET PO SCH (08:27)
[2020-11-01] MEDS: Cholecalciferol (D-3) 1,000 UNIT (25MCG) TABLET PO SCH (08:27)
[2020-11-01] MEDS: Furosemide 20 MG/2 ML VIAL IVP SCH (08:28)
[2020-11-01] MEDS: rOPINIRole 1 MG TABLET PO SCH (19:51)
[2020-11-01] MEDS: Ondansetron 4 MG/2 ML VIAL IVP PRN (23:30)
[2020-11-02 04:10] LABS: Basophils % 0.4 %; Mean Platelet Volume 10.6 fL (9.4-12.4); Red Blood Count 2.55 M/mcL (3.82-4.97)
[2020-11-02 04:12] LABS: Eosinophils # 0.6 K/mcL (0.0-0.6); Eosinophils % 12.1 %; Hematocrit 26.4 % (35.3-44.9); Hemoglobin 8.4 g/dL (11.5-15.4); Immature Granulocytes % 0.6 % (0-4); Immature Platelets 4.6 % (1.1-6.1); Lymphocytes # 0.9 K/mcL (0.6-4.6); Lymphocytes % 18.1 %; Mean Corpuscular HGB Conc 31.8 g/dL (31.6-35.5); Mean Corpuscular Hemoglobin 32.9 pg (28.0-33.3); Mean Corpuscular Volume 103.5 fL (83.0-100.0); Monocytes # 0.4 K/mcL (0.0-1.3); Monocytes % 7.6 %; Red Cell Distribution Width 14.8 % (11.5-14.5); Segmented Neutrophils % 61.2 %; White Blood Count 5.1 K/mcL (4.3-11.1)
[2020-11-02 04:15] LABS: Neutrophils # 3.1 K/mcL (1.6-8.9); Platelet Count 74 K/mcL (140-400)
[2020-11-02 04:30] LABS: BUN/Creatinine Ratio 11 (6-26); Blood Urea Nitrogen 10 mg/dL (8-23); Calcium 8.6 mg/dL (8.6-10.3); Carbon Dioxide 27 mEq/L (23-29); Chloride 101 mEq/L (98-107); Glucose 105 mg/dL (70-105); Osmolality,Calculated 277 (280-300); Potassium 3.8 mEq/L (3.5-5.1); Sodium 134 mEq/L (136-145); eGFR For African Americans > 60 (> 60); eGFR For Non-African Americans 56 (> 60)
[2020-11-02 06:57] VITALS: BP 144/74
[2020-11-02] MEDS: Apixaban 5 MG TABLET PO SCH (09:12)
[2020-11-02] MEDS: lisinopriL 10 MG TABLET PO SCH (09:12)
[2020-11-02] MEDS: Cholecalciferol (D-3) 1,000 UNIT (25MCG) TABLET PO SCH (09:12)
[2020-11-02] MEDS: Sennosides/Docusate Sodium TABLET PO PRN (09:16)
== END 2020-11-02 14:39 | disposition home health service (06) | DRG 388 ==
LOC: 2ANU 22:08 → EMEROOARM 22:08 → SUATTDRO 10-27 01:14 → 2ANU 10-27 01:59 → SUATTDRO 10-31 10:15
PROVIDERS: ADMIT Family Medicine; ATTEND Family Medicine